=== PATIENT | female | born 1985 | race Caucasian/White ===

== ENCOUNTER 2016-05-09 08:56 | Observation (INO) | payer MEDICAID, OTHER ==
[2016-05-09] VITALS (11 sets, daily range): BP systolic 98–131; BP diastolic 56–74; PULSE 71–115; RESP 16–18; TEMP 97.9–98.5; O2SAT 97–100
[~2016-05-09] VITALS: Ht 177.8 cm; Wt 101.2 kg
[~2016-05-09 08:56] MED LIST: MEDR10 PO
[2016-05-09] MEDS ORDERED: birth control PO (11:58)
[2016-05-09 12:37] LABS: MEAN CORPUSCULAR HGB CONC 28.3 % (32.0-36.0)
--- NOTE | 2016-05-09 12:44 | PD ---
HPI Chief Complaint: General Weakness Time Seen by Provider: 12:37 Travel History International Travel<30 days: No Contact w/Intl Traveler<30days: No Traveled to known affect area: No History of Present Illness HPI Patient is a 31-year-old female with a history of hypothyroidism and anemia secondary to heavy menses not currently on levothyroxine or iron presenting with fatigue for 1 month. She states symptoms got progressively worse. She has occasional frontal tension type headache. She is occasionally lightheaded, denies syncope. Standing from sitting to seem to make it worse. She's had dry skin, hair falling out, muscle aches and chills but denies fever. She denies ENT/URI symptoms. She denies abdominal pain, dysuria, diarrhea, hematochezia and melena. She is on oral contraception for regulation of her menses and this does seem to be working. She denies chest pain, shortness of breath, cough, orthopnea, MOSES and pedal edema. She denies secondary to this and tubal ligation. She denies tobacco and illicit drug use, endorses rare alcohol use. PFSH Past Medical History Diminished Hearing: No Thyroid Disease: Yes (HYPOTHYROID RESOLVED) Tetanus Vaccination: < 5 Years ?: Not LMP: 05/06/16 : 5 Para: 4 Miscarriage: 1 Tubal Ligation: Yes Social History Alcohol Use: Yes (occ) Tobacco Use: No Substance Use: No Allergies-Medications (Allergen,Severity, Reaction): Coded Allergies: No Known Allergies (Unverified , 05/09/16) Reported Meds & Prescriptions Reported Meds & Active Scripts Active Reported [ control] 1 Tab PO DAILY Review of Systems Except as stated in HPI: all other systems reviewed are Neg Physical Exam Narrative GENERAL: Well-developed and well-nourished adult female in no acute distress. SKIN: Skin is dry. No changes to hair or nails. Good turgor without tenting. HEAD: Normocephalic and atraumatic. EYES: Pale conjunctiva. PERRL bilaterally, 5mm. EOMI bilaterally. No injection or icterus present. No proptosis. Lids without edema or erythema. Subcentimeter nontender cystic lesion superior to the right upper eyelid, chronic per patient. ENT: Bilateral ear canals are non-edematous/non-erythematous without otorrhea. Bilateral TMs have intact landmarks and without distortion, perforation, air- fluid level or erythema. Nasal mucosa pink and moist without discharge, septum intact and midline. Buccal mucosa pink and moist. Oropharynx free of erythema, tonsillar hypertrophy, masses, swelling, asymmetry and exudates. Uvula midline and airway patent. NECK: Supple, no meningeal signs. Thyroid not palpable. No masses or induration. Trachea midline, no JVD. No cervical or facial lymphadenopathy. CARDIOVASCULAR: Regular rate(88) and rhythm without murmurs, rubs, clicks or gallops. Radial and posterior tibial pulses 2+ bilaterally. No pedal edema. RESPIRATORY: Clear to auscultation bilaterally with symmetrical rise and fall, no distress or use of accessory muscles. GASTROINTESTINAL: Non-tender, non-distended. Normal bowel sounds all 4 quadrants. No masses or organomegaly present. MUSCULOSKELETAL: No gait disturbances. Patient freely moving all four extremities spontaneously. Extremities without clubbing, cyanosis, or edema. No obvious deformities. NEUROLOGIC: CN II-XII grossly intact. Awake and alert. Motor grossly within normal limits. Normal speech. PSYCHIATRIC: Appropriate mood and affect; insight and judgment normal. Data Data Last Documented VS Vital Signs Date Time Temp Pulse Resp B/P Pulse Ox O2 Delivery O2 Flow Rate FiO2 05/09/16 14:56 98.5 80 18 121/65 100 Room Air Orders Electrocardiogram (05/09/16 12:32) Complete Blood Count With Diff (05/09/16 12:32) Comprehensive Metabolic Panel (05/09/16 12:32) Troponin I (05/09/16 12:32) Urinalysis - C+S If Indicated (05/09/16 12:32) Chest, Single Ap (05/09/16 12:32) Orthostatic Vital Signs (05/09/16 12:32) Thyroid Stimulating Hormone (05/09/16 12:32) Lipase (05/09/16 12:32) Blood Glucose (05/09/16 12:32) Ibuprofen (Motrin) (05/09/16 12:45) Creatine Kinase (Cpk) (05/09/16 12:37) Prothrombin Time / Inr (Pt) (05/09/16 12:44) Act Partial Throm Time (Ptt) (05/09/16 12:44) Type And Screen (05/09/16 12:44) Urine Culture (05/09/16 13:09) Vitamin B12 (05/09/16 13:51) Folate, Serum (05/09/16 13:51) Rbc Folate (05/09/16 13:51) Ferritin (05/09/16 13:51) Iron/Tibc Profile (05/09/16 13:51) Retic Count (05/09/16 13:51) Red Blood Cells (Rbc) (05/09/16 14:03) Blood Product Administration .UPON TRANSFUSION (05/09/16 14:03) Ceftriaxone Inj (Rocephin Inj) (05/09/16 14:15) Admit Order (Ed Use Only) (05/09/16 15:13) Place In Observation (05/09/16 ) Vital Signs (Adult) Q4H (05/09/16 15:14) Activity Oob With Assistance (05/09/16 15:14) Fiber Optic Technician / Telemetry .CONTINUOUS (05/09/16 15:14) Diet Regular Basic (05/09/16 Dinner) Sodium Chloride 0.9% Flush (Ns Flush) (05/09/16 15:15) Sodium Chloride 0.9% Flush (Ns Flush) (05/09/16 21:00) Acetaminophen (Tylenol) (05/09/16 15:15) Ondansetron Inj (Zofran Inj) (05/09/16 15:15) Complete Blood Count With Diff (05/10/16 06:00) Resp Oxygen Chuy C Titrat 1-4 L (05/09/16 ) Scd Bilateral/Knee High FATUMA.BID (05/09/16 15:14) Herb Bilateral/Knee High FATUMA.QSHIFT (05/09/16 15:14) Naloxone Inj (Narcan Inj) (05/09/16 15:15) Labs Laboratory Tests Test 05/09/16 05/09/16 13:09 14:03 White Blood Count 9.0 TH/MM3 Red Blood Count 3.70 MIL/MM3 Hemoglobin 6.1 GM/DL Hematocrit 21.5 % Mean Corpuscular Volume 58.1 FL Mean Corpuscular Hemoglobin 16.5 PG Mean Corpuscular Hemoglobin 28.3 % Concent Red Cell Distribution Width 21.4 % Platelet Count 330 TH/MM3 Mean Platelet Volume 8.8 FL Neutrophils (%) (Auto) 78.9 % Lymphocytes (%) (Auto) 14.2 % Monocytes (%) (Auto) 6.0 % Eosinophils (%) (Auto) 0.0 % Basophils (%) (Auto) 0.9 % Neutrophils # (Auto) 7.1 TH/MM3 Lymphocytes # (Auto) 1.3 TH/MM3 Monocytes # (Auto) 0.5 TH/MM3 Eosinophils # (Auto) 0.0 TH/MM3 Basophils # (Auto) 0.1 TH/MM3 CBC Comment AUTO DIFF Differential Comment AUTO DIFF CONFIRMED Reticulocyte Count 3.1 % Absolute Reticulocyte Count 110.9 MIL/L Prothrombin Time 10.4 SEC Prothromb Time International 0.9 RATIO Ratio Activated Partial 22.7 SEC Thromboplast Time Urine Color YELLOW Urine Turbidity HAZY Urine pH 6.0 Urine Specific [place] 1.021 Urine Protein 30 mg/dL Urine Glucose (UA) NEG mg/dL Urine Ketones NEG mg/dL Urine Occult Blood TRACE Urine Nitrite POS Urine Bilirubin NEG Urine Urobilinogen LESS THAN 2.0 MG/DL Urine Leukocyte Esterase MOD Urine RBC 2 /hpf Urine WBC 58 /hpf Urine WBC Clumps RARE Urine Squamous Epithelial <1 /hpf Cells Urine Bacteria MOD /hpf Urine Mucus MANY /lpf Microscopic Urinalysis Comment CULTURE INDICATED Sodium Level 135 MEQ/L Potassium Level 4.0 MEQ/L Chloride Level 103 MEQ/L Carbon Dioxide Level 24.3 MEQ/L Anion Gap 8 MEQ/L Blood Urea Nitrogen 13 MG/DL Creatinine 0.87 MG/DL Estimat Glomerular Filtration 76 ML/MIN Rate Random Glucose 102 MG/DL Calcium Level 8.5 MG/DL Total Bilirubin 0.5 MG/DL Aspartate Amino Transf 10 U/L (AST/SGOT) Alanine Aminotransferase 22 U/L (ALT/SGPT) Alkaline Phosphatase 74 U/L Total Creatine Kinase 50 U/L Troponin I LESS THAN 0.02 NG/ML Total Protein 7.7 GM/DL Albumin 2.9 GM/DL Lipase 150 U/L Thyroid Stimulating Hormone 2.410 uIU/ML 3rd Gen Blood Type A POSITIVE Antibody Screen NEGATIVE Crossmatch Leukocyte-Reduced Red Blood Cells Blood Bank Comment MDM Medical Decision Making Medical Screen Exam Complete: Yes Emergency Medical Condition: Yes Differential Diagnosis Anemia versus hypothyroidism versus hypoglycemia versus dehydration versus rhabdomyolysis versus viral syndrome versus ACS unlikely Narrative Course Patient is a 31-year-old female history of hypothyroidism and anemia secondary to heavy loss during menses currently not on levothyroxine or iron presenting with fatigue for 1 month. She has other symptoms suggestive of anemia such as occasional dizziness without syncope. She has some mild frontal headaches, minor one is present now. She has no "red flag "symptoms and this appears to be a tension type headache. Neuro exam is normal. Ordered CBC, CMP, lipase, CPK, urinalysis, troponin, orthostatic vital signs, EKG and chest x-ray as well as coags and type and cross as she does have pale conjunctiva. Heart rate in triage was 115 however on my exam is 88 and regular. Work up was initiated in triage. Patient will be transferred to a medical bed as one becomes available for further care and disposition by the next provider. Received call from hematology critical lab values. H&H 6.1/21.5. Platelets 330 , no leukocytosis. INR 0.9. I discussed with Dr. Del Rio as the patient is being moved to her pod and she ordered anemia labs and requested I ordered 1 unit of pRBCs. Urinalysis suggests UTI as well, ordered some ceftriaxone 1 g. Metabolic panel shows sodium 135, creatinine 0.7, CK 50, troponin less than 0.02. EKG and chest x-ray unremarkable. Patient was signed out to Dr. Del Rio for further care and management and admission. Diagnosis Primary Impression: Anemia requiring transfusions Additional Impression: Urinary tract infection Qualified Code: N39.0 - Urinary tract infection without hematuria, site unspecified Admitting Information Admitting Physician Requests: Admit Condition: Stable Akin Holt III May 09, 2016 12:44
[2016-05-09] MEDS ORDERED: IBUPROFEN 800 MG TAB PO ONE (12:45)
--- NOTE | 2016-05-09 13:13 | RADRPT ---
EXAM DATE/TIME: 05/09/2016 12:56 [facility] COMPARISON: No previous studies available for comparison. INDICATIONS : General weakness, palpitations MEDICAL HISTORY : hypothyroid SURGICAL HISTORY : Tubal ligation. ENCOUNTER: Initial ACUITY: 1 day PAIN SCORE: 0/10 LOCATION: Bilateral chest FINDINGS: A single view of the chest demonstrates the lungs to be symmetrically aerated without evidence of mas s, infiltrate or effusion. The cardiomediastinal contours are unremarkable. Osseous structures are intact. CONCLUSION: No acute disease. Roosevelt Cui MD FACR on May 09, 2016 at 13:11 Board Certified Radiologist. This report was verified electronically.
[2016-05-09 13:29] LABS: AUTOMATED NEUTROPHIL # 7.1 TH/MM3 (1.8-7.7); BASOPHIL # 0.1 TH/MM3 (0-0.2); BASOPHIL % 0.9 % (0.0-2.0); LYMPH % 14.2 % (9.0-44.0); LYMPHOCYTE # 1.3 TH/MM3 (1.0-4.8); MEAN CELL VOLUME 58.1 FL (80.0-100.0); MEAN CORPUSCULAR HEMOGLOBIN 16.5 PG (27.0-34.0); NEUT % 78.9 % (16.0-70.0); PLATELET COUNT 330 TH/MM3 (150-450); RED CELL DISTRIBUTION WIDTH 21.4 % (11.6-17.2)
[2016-05-09 13:38] LABS: HEMO FLAGS AUTO DIFF
[2016-05-09 13:39] LABS: APTT (PATIENT) 22.7 SEC (24.3-30.1); INTERNATIONAL NORMALIZED RATIO 0.9 RATIO; PROTHROMBIN TIME - PATIENT 10.4 SEC (9.8-11.6)
[2016-05-09 13:40] LABS: BACTERIA, URINE MOD /hpf; BLOOD, URINE TRACE (NEG); GLUCOSE,URINE NEG (NEG); KETONE, URINE NEG (NEG); MUCUS URINE MANY /lpf (OCC); SQUAMOUS EPITHELIAL CELL URINE <1 /hpf (0-5); URINE COLOR YELLOW (YELLW/STRAW)
[2016-05-09 13:42] LABS: HEMATOCRIT 21.5 % (35.0-46.0)
[2016-05-09 13:43] LABS: ALT (GPT) 22 U/L (10-53); ANION GAP 8 MEQ/L (5-15); AST (GOT) 10 U/L (15-37); BICARBONATE 24.3 MEQ/L (21.0-32.0); BLOOD UREA NITROGEN 13 MG/DL (7-18); CHLORIDE 103 MEQ/L (98-107); GLOMERULAR FILTRATION RATE 76 ML/MIN (>89); SODIUM (NA) 135 MEQ/L (136-145)
[2016-05-09 13:45] LABS: COMMENT (UR) CULTURE INDICATED; CULTURE IF INDICATED CULTURE INDICATED; NITRITE,URINE POS (NEG)
[2016-05-09 13:53] LABS: ALKALINE PHOSPHATASE 74 U/L (45-117); TOTAL BILIRUBIN ADULT 0.5 MG/DL (0.2-1.0)
[2016-05-09 14:10] LABS: SCAN/DIFF AUTO DIFF CONFIRMED
[2016-05-09 14:13] LABS: RETIC % 3.1 % (0.4-3.0)
[2016-05-09 14:14] LABS: REVIEW FLAG FINAL
[2016-05-09] MEDS ORDERED: cefTRIAXone INJ 1,000 MG in SODIUM CHLORIDE 0.9% INJ 100 ML IV ONE (14:15)
--- NOTE | 2016-05-09 14:28 | PD ---
Physical Exam Date Seen by Provider: May 09, 2016 Data Data Last Documented VS Vital Signs Date Time Temp Pulse Resp B/P Pulse Ox O2 Delivery O2 Flow Rate FiO2 05/09/16 14:56 98.5 80 18 121/65 100 Room Air Orders Electrocardiogram (05/09/16 12:32) Complete Blood Count With Diff (05/09/16 12:32) Comprehensive Metabolic Panel (05/09/16 12:32) Troponin I (05/09/16 12:32) Urinalysis - C+S If Indicated (05/09/16 12:32) Chest, Single Ap (05/09/16 12:32) Orthostatic Vital Signs (05/09/16 12:32) Thyroid Stimulating Hormone (05/09/16 12:32) Lipase (05/09/16 12:32) Blood Glucose (05/09/16 12:32) Ibuprofen (Motrin) (05/09/16 12:45) Creatine Kinase (Cpk) (05/09/16 12:37) Prothrombin Time / Inr (Pt) (05/09/16 12:44) Act Partial Throm Time (Ptt) (05/09/16 12:44) Type And Screen (05/09/16 12:44) Urine Culture (05/09/16 13:09) Vitamin B12 (05/09/16 13:51) Folate, Serum (05/09/16 13:51) Rbc Folate (05/09/16 13:51) Ferritin (05/09/16 13:51) Iron/Tibc Profile (05/09/16 13:51) Retic Count (05/09/16 13:51) Red Blood Cells (Rbc) (05/09/16 14:03) Blood Product Administration .UPON TRANSFUSION (05/09/16 14:03) Ceftriaxone Inj (Rocephin Inj) (05/09/16 14:15) Admit Order (Ed Use Only) (05/09/16 15:13) Place In Observation (05/09/16 ) Vital Signs (Adult) Q4H (05/09/16 15:14) Activity Oob With Assistance (05/09/16 15:14) Strategic Marketing Leader / Telemetry .CONTINUOUS (05/09/16 15:14) Diet Regular Basic (05/09/16 Dinner) Sodium Chloride 0.9% Flush (Ns Flush) (05/09/16 15:15) Sodium Chloride 0.9% Flush (Ns Flush) (05/09/16 21:00) Acetaminophen (Tylenol) (05/09/16 15:15) Ondansetron Inj (Zofran Inj) (05/09/16 15:15) Complete Blood Count With Diff (05/10/16 06:00) Resp Oxygen Chuy C Titrat 1-4 L (05/09/16 ) Scd Bilateral/Knee High FATUMA.BID (05/09/16 15:14) Herb Bilateral/Knee High FATUMA.QSHIFT (05/09/16 15:14) Naloxone Inj (Narcan Inj) (05/09/16 15:15) Labs Laboratory Tests Test 05/09/16 05/09/16 13:09 14:03 White Blood Count 9.0 TH/MM3 Red Blood Count 3.70 MIL/MM3 Hemoglobin 6.1 GM/DL Hematocrit 21.5 % Mean Corpuscular Volume 58.1 FL Mean Corpuscular Hemoglobin 16.5 PG Mean Corpuscular Hemoglobin 28.3 % Concent Red Cell Distribution Width 21.4 % Platelet Count 330 TH/MM3 Mean Platelet Volume 8.8 FL Neutrophils (%) (Auto) 78.9 % Lymphocytes (%) (Auto) 14.2 % Monocytes (%) (Auto) 6.0 % Eosinophils (%) (Auto) 0.0 % Basophils (%) (Auto) 0.9 % Neutrophils # (Auto) 7.1 TH/MM3 Lymphocytes # (Auto) 1.3 TH/MM3 Monocytes # (Auto) 0.5 TH/MM3 Eosinophils # (Auto) 0.0 TH/MM3 Basophils # (Auto) 0.1 TH/MM3 CBC Comment AUTO DIFF Differential Comment AUTO DIFF CONFIRMED Reticulocyte Count 3.1 % Absolute Reticulocyte Count 110.9 MIL/L Prothrombin Time 10.4 SEC Prothromb Time International 0.9 RATIO Ratio Activated Partial 22.7 SEC Thromboplast Time Urine Color YELLOW Urine Turbidity HAZY Urine pH 6.0 Urine Specific [place] 1.021 Urine Protein 30 mg/dL Urine Glucose (UA) NEG mg/dL Urine Ketones NEG mg/dL Urine Occult Blood TRACE Urine Nitrite POS Urine Bilirubin NEG Urine Urobilinogen LESS THAN 2.0 MG/DL Urine Leukocyte Esterase MOD Urine RBC 2 /hpf Urine WBC 58 /hpf Urine WBC Clumps RARE Urine Squamous Epithelial <1 /hpf Cells Urine Bacteria MOD /hpf Urine Mucus MANY /lpf Microscopic Urinalysis Comment CULTURE INDICATED Sodium Level 135 MEQ/L Potassium Level 4.0 MEQ/L Chloride Level 103 MEQ/L Carbon Dioxide Level 24.3 MEQ/L Anion Gap 8 MEQ/L Blood Urea Nitrogen 13 MG/DL Creatinine 0.87 MG/DL Estimat Glomerular Filtration 76 ML/MIN Rate Random Glucose 102 MG/DL Calcium Level 8.5 MG/DL Total Bilirubin 0.5 MG/DL Aspartate Amino Transf 10 U/L (AST/SGOT) Alanine Aminotransferase 22 U/L (ALT/SGPT) Alkaline Phosphatase 74 U/L Total Creatine Kinase 50 U/L Troponin I LESS THAN 0.02 NG/ML Total Protein 7.7 GM/DL Albumin 2.9 GM/DL Lipase 150 U/L Thyroid Stimulating Hormone 2.410 uIU/ML 3rd Gen Blood Type A POSITIVE Antibody Screen NEGATIVE Crossmatch Leukocyte-Reduced Red Blood Cells Blood Bank Comment MDM Medical Record Reviewed: Yes Supervised Visit with DAYO: Yes Interpretation(s) EKG at 1333: NSR at 84bpm, qt/qtc: 354/395, no acute st seg changes Vital Signs Date Time Temp Pulse Resp B/P Pulse Ox O2 Delivery O2 Flow Rate FiO2 05/09/16 09:00 98.1 115 16 131/74 98 CBC & BMP Diagram 05/09/16 13:09 Differential Diagnosis Symptomatic anemia Narrative Course I, Dr. Del Rio, have reviewed the advance practice practitioner's documentation and am in agreement, met with the patient face to face, made the diagnosis, and the medical decision making was done by me. *My assessment and Findings: Symptomatic anemia requiring blood transfusion at this time with a hemoglobin of 6.1 Hemoglobin on June 21, 2015 was 12.1 Hemoglobin on December 16, 2015 was 8.6 Patient is a 31-year-old female with history of anemia patient attributes to heavy menses, presents to emergency room with complaints of increased fatigue for the past month. Patient reports that she started her menses 3 days ago, reports that her cycle has not been as heavy as she currently is on control pills to help with this. Patient reports that symptoms have been progressing and having getting worse. Reports that she used to be on iron in the past for anemia, reports that she has stopped this as well as her levothyroxine and has not been compliant with her medications. Reports that she occasionally feels lightheaded and dizzy with her symptoms. Patient reports that she has never had a blood transfusion for anemia in the past. Hemoglobin is 6.1. Anemia labs ordered for patient prior to blood confusion. Will admit patient and transfuse with 1 unit of blood. case reviewed with dr enriquez who accepts pt to service Diagnosis Primary Impression: Anemia requiring transfusions Additional Impression: Urinary tract infection Qualified Code: N39.0 - Urinary tract infection without hematuria, site unspecified Admitting Information Admitting Physician Requests: Observation Condition: Stable Brook Del Rio DO May 09, 2016 14:28
[2016-05-09] MEDS ORDERED: ONDANSETRON HCL 4 MG/2 ML VIAL IVP PRN (15:15)
[2016-05-09] MEDS ORDERED: ACETAMINOPHEN 325 MG TAB PO PRN (15:15)
[2016-05-09] MEDS ORDERED: SODIUM CHLORIDE 0.9% FLUSH 5 ML FLUSH FLUSH PRN (15:15)
[2016-05-09] MEDS ORDERED: NALOXONE HCL 0.4 MG/ML AMP IV PRN (15:15)
[2016-05-09 17:04] LABS: FERRITIN 5 NG/ML (8-252); TRANSFERRIN IRON PROFILE 367 MG/DL (200-360)
[2016-05-09] MEDS ORDERED: SODIUM CHLOR 0.9% 250 ML INJ 250 ML IV ONE (17:30)
--- NOTE | 2016-05-09 17:34 | HHI.HP ---
HPI Service [facility] Primary Care Physician No Primary Care Physician Admission Diagnosis Symptomatic Anemia Diagnoses: Chief Complaint: Fatigue Travel History International Travel<30 Days: No Contact w/Intl Traveler <30 Da: No Traveled to Known Affected Are: No History of Present Illness 31-year-old female with a past medical history of anemia, menorrhagia, iron deficiency, hypothyroidism who presented with fatigue. The patient states that approximately 2 weeks ago she was having symptoms of headache, chills, muscle aches, and dizziness. She states the symptoms lasted for a few days and seemed to improve. However, for the past 3 days she's been having similar symptoms again. She thought this was secondary to hypothyroidism, because she was on medications for that in the past. She is currently on her period. She was actually having of heavy periods aide. Months ago, and was started on control, which have regulated and decrease the heaviness of her periods. She is following with an RN [facility] clinic in [facility]. She was told that she needed to be on iron, but she could not tolerate the iron because it caused her vomiting. She is having some nausea and vomiting earlier today, denies any hematemesis. She denies any blurred vision, cough, shortness breath, chest pain , diarrhea, constipation. Review of Systems Except as stated in HPI: all other systems reviewed are Neg Past Family Social History Past Medical History Menorrhagia Iron deficiency Anemia History of hypothyroidism Past Surgical History Left ankle surgery Tubal ligation Reported Medications [ control] 1 Tab PO DAILY, patient is unsure which specific control she is on Allergies: Coded Allergies: No Known Allergies (Unverified , 05/09/16) Active Ordered Medications Current Medications Medications (Trade) Dose Ordered Sig/Earlene Route Start Time Stop Time Status Last Admin (NS Flush) 2 ml UNSCH PRN FLUSH 05/09/16 15:15 (NS Flush) 2 ml BID FLUSH 05/09/16 21:00 (Tylenol) 650 mg Q4H PRN PO 05/09/16 15:15 (Zofran Inj) 4 mg Q6H PRN IVP 05/09/16 15:15 (Narcan Inj) 0.4 mg UNSCH PRN IV 05/09/16 15:15 Family History Father has hypertension and diabetes Social History Drinks one or 2 drinks, every one or 2 weeks Denies any tobacco abuse or drug use Physical Exam Vital Signs Vital Signs Date Time Temp Pulse Resp B/P Pulse Ox O2 Delivery O2 Flow Rate FiO2 05/09/16 16:00 76 18 98/61 97 Room Air 05/09/16 15:48 77 18 100/58 97 Room Air 05/09/16 15:19 98.2 79 18 102/67 100 Room Air 05/09/16 14:56 98.5 80 18 121/65 100 Room Air 05/09/16 14:44 78 18 113/61 102 18 121/65 05/09/16 09:00 98.1 115 16 131/74 98 Physical Exam GENERAL: Well-developed well-nourished. In no acute distress. SKIN: Warm and dry. No lesions noted. HEENT: Normocephalic. Pupils equal and round. Mucous membranes pink and moist. CARDIOVASCULAR: Regular rate and rhythm. No murmur appreciated. RESPIRATORY: No accessory muscle use. Clear to auscultation. Breath sounds equal bilaterally. GASTROINTESTINAL: Abdomen soft, non-tender, nondistended. Bowel sounds x4. MUSCULOSKELETAL: No obvious deformities. No clubbing or cyanosis. No edema. NEUROLOGICAL: Awake and alert. No focal neurological deficits. Moves upper and lower extremities spontaneously. Normal speech. PSYCHIATRIC: Appropriate mood and affect; insight and judgment normal. Laboratory Laboratory Tests Test 05/09/16 05/09/16 13:09 14:03 White Blood Count 9.0 Red Blood Count 3.70 Hemoglobin 6.1 Hematocrit 21.5 Mean Corpuscular Volume 58.1 Mean Corpuscular Hemoglobin 16.5 Mean Corpuscular Hemoglobin 28.3 Concent Red Cell Distribution Width 21.4 Platelet Count 330 Mean Platelet Volume 8.8 Neutrophils (%) (Auto) 78.9 Lymphocytes (%) (Auto) 14.2 Monocytes (%) (Auto) 6.0 Eosinophils (%) (Auto) 0.0 Basophils (%) (Auto) 0.9 Neutrophils # (Auto) 7.1 Lymphocytes # (Auto) 1.3 Monocytes # (Auto) 0.5 Eosinophils # (Auto) 0.0 Basophils # (Auto) 0.1 CBC Comment AUTO DIFF Differential Comment AUTO DIFF CONFIRMED Reticulocyte Count 3.1 Absolute Reticulocyte Count 110.9 Prothrombin Time 10.4 Prothromb Time International 0.9 Ratio Activated Partial 22.7 Thromboplast Time Urine Color YELLOW Urine Turbidity HAZY Urine pH 6.0 Urine Specific [place] 1.021 Urine Protein 30 Urine Glucose (UA) NEG Urine Ketones NEG Urine Occult Blood TRACE Urine Nitrite POS Urine Bilirubin NEG Urine Urobilinogen LESS THAN 2.0 Urine Leukocyte Esterase MOD Urine RBC 2 Urine WBC 58 Urine WBC Clumps RARE Urine Squamous Epithelial <1 Cells Urine Bacteria MOD Urine Mucus MANY Microscopic Urinalysis Comment CULTURE INDICATED Sodium Level 135 Potassium Level 4.0 Chloride Level 103 Carbon Dioxide Level 24.3 Anion Gap 8 Blood Urea Nitrogen 13 Creatinine 0.87 Estimat Glomerular Filtration 76 Rate Random Glucose 102 Calcium Level 8.5 Iron Level 18 Total Iron Binding Capacity 514 Percent Iron Saturation 3.5 Ferritin 5 Total Bilirubin 0.5 Aspartate Amino Transf 10 (AST/SGOT) Alanine Aminotransferase 22 (ALT/SGPT) Alkaline Phosphatase 74 Total Creatine Kinase 50 Troponin I LESS THAN 0.02 Total Protein 7.7 Albumin 2.9 Lipase 150 Vitamin B12 Level 287 Folate 12.9 Thyroid Stimulating Hormone 2.410 3rd Gen Blood Type A POSITIVE Antibody Screen NEGATIVE Crossmatch Leukocyte-Reduced Red Blood Cells Blood Bank Comment Date/Time Procedure Status Source Growth 05/09/16 13:09 Urine Culture Received Urine Clean Catch Pending Result Diagram: 05/09/16 1309 05/09/16 1309 Imaging Last Impressions Chest X-Ray 05/09/16 1232 Signed Impressions: Service Date/Time: Monday, May 09, 2016 12:56 - CONCLUSION: No acute disease. Roosevelt Cui MD FACR Assessment and Plan Assessment and Plan 31-year-old female with a past medical history of anemia, menorrhagia, iron deficiency, hypothyroidism who presented with fatigue Acute anemia: Microcytic. Secondary to severe iron deficiency and patient on her period. Hemoglobin 6.1, previously 8.6 on 12/16/15. Iron panel reviewed which shows severe iron deficiency. Transfuse 2 units PRBCs. Supportive care. We'll plan for ferrous gluconate prescription at discharge. Abnormal UA: UA with evidence of UTI vs contamination from period. Empiric IV Rocephin. Follow up urine culture. History of menorrhagia: Improved since starting on control pills a few months ago. Continue HAND FINISHER follow-up. History of hypothyroidism: TSH within normal limits. No indication for treatment at this time. DVT prophylaxis: SCDs Written by Juan Daniel Merritt, acting as scribe for Dr. Real on 05/09/16 at 17:34. Discussed Condition With Patient, RN Attending Statement The documentation accurately reflects the work performed [id number] by me on at 17:34. Juan Daniel Merritt May 09, 2016 17:34 Nick Real MD May 09, 2016 18:22
[2016-05-09] MEDS: SODIUM CHLORIDE 0.9% FLUSH 5 ML FLUSH FLUSH SCH (21:34)
[2016-05-10] VITALS (9 sets, daily range): BP systolic 101–128; BP diastolic 55–71; PULSE 62–84; RESP 16–18; TEMP 97.6–98.5; O2SAT 98–100
[2016-05-10 08:16] LABS: AUTOMATED NEUTROPHIL # 6.2 TH/MM3 (1.8-7.7); BASOPHIL # 0.1 TH/MM3 (0-0.2); BASOPHIL % 0.7 % (0.0-2.0); EOSINOPHIL % 0.4 % (0.0-4.0); LYMPH % 23.4 % (9.0-44.0); LYMPHOCYTE # 2.2 TH/MM3 (1.0-4.8); MEAN CELL VOLUME 64.4 FL (80.0-100.0); MEAN CORPUSCULAR HEMOGLOBIN 19.9 PG (27.0-34.0); MEAN CORPUSCULAR HGB CONC 30.8 % (32.0-36.0); MONO % 8.7 % (0.0-8.0); NEUT % 66.8 % (16.0-70.0); PLATELET COUNT 256 TH/MM3 (150-450); RED BLOOD COUNT 4.03 MIL/MM3 (4.00-5.30); RED CELL DISTRIBUTION WIDTH 27.4 % (11.6-17.2); WHITE BLOOD COUNT 9.3 TH/MM3 (4.0-11.0)
[2016-05-10 08:22] LABS: HEMO FLAGS AUTO DIFF
[2016-05-10 09:06] LABS: SCAN/DIFF AUTO DIFF CONFIRMED
[2016-05-10] MEDS: SODIUM CHLORIDE 0.9% FLUSH 5 ML FLUSH FLUSH SCH ×2 (09:42→21:06)
--- NOTE | 2016-05-10 13:14 | HHI.PR ---
Subjective Remarks Follow-up anemia, UTI. Patient still having some lightheadedness with ambulation. Still having menstrual bleeding, heavier today. Denies dyspnea, nausea, vomiting. Objective Vitals Vital Signs Date Time Temp Pulse Resp B/P Pulse Ox O2 Delivery O2 Flow Rate FiO2 05/10/16 12:00 98.5 70 18 101/68 99 05/10/16 09:46 62 05/10/16 09:46 Room Air 05/10/16 09:25 99 21 05/10/16 08:00 97.9 65 18 108/61 100 05/10/16 04:00 97.7 68 18 104/59 99 05/10/16 02:15 98.1 84 18 108/60 100 05/10/16 00:00 98.0 80 18 102/55 98 05/09/16 23:30 98.0 78 18 107/58 98 05/09/16 23:10 98.1 78 18 100/59 98 05/09/16 20:00 Room Air 05/09/16 20:00 84 05/09/16 20:00 98.1 86 18 114/56 99 05/09/16 19:30 98.1 87 18 114/56 100 05/09/16 16:30 97.9 71 18 107/59 97 05/09/16 16:00 76 18 98/61 97 Room Air 05/09/16 15:48 77 18 100/58 97 Room Air 05/09/16 15:19 98.2 79 18 102/67 100 Room Air 05/09/16 14:56 98.5 80 18 121/65 100 Room Air 05/09/16 14:44 78 18 113/61 102 18 121/65 I/O 05/09/16 05/09/16 05/09/16 05/10/16 05/10/16 05/10/16 07:00 15:00 23:00 07:00 15:00 23:00 Intake Total 480 ml 240 ml Balance 480 ml 240 ml Intake Oral 480 ml 240 ml # Voids 3 2 Result Diagram: 05/10/16 0720 05/09/16 1309 Imaging Last Impressions Chest X-Ray 05/09/16 1232 Signed Impressions: Service Date/Time: Monday, May 09, 2016 12:56 - CONCLUSION: No acute disease. Roosevelt Cui MD FACR Objective Remarks Examined in presence of the nurse. General: No acute distress. Heart: Regular rate and rhythm. No murmur. Lungs: Clear to auscultation bilaterally. No wheezes, rales, or rhonchi. Breathing is nonlabored. Abdomen: Soft, nontender, nondistended. Extremities: No lower extremity edema. Psych: Alert and oriented. Procedures None Urinary Catheter: No Vascular Central Line Catheter: No A/P Problem List: (1) Anemia requiring transfusions ICD Code: D64.9 Status: Acute (2) Urinary tract infection ICD Code: N39.0 Status: Acute (3) Iron deficiency anemia ICD Code: D50.9 Status: Acute Assessment and Plan 1. Symptomatic anemia: Secondary to severe iron deficiency, menstrual bleeding. Patient's periods are much less heavy since starting on control pills. Supplement iron. Hemoglobin improved following transfusion. Monitor H&H. 2. UTI: Urine culture growing gram-negative rods. Continue antibiotics. Awaiting further ID and sensitivities. 3. History of menorrhagia: Improved with control pills. Follow-up as outpatient with gynecology. 4. DVT prophylaxis: SCDs. Avoid chemical prophylaxis secondary to anemia. Discharge Planning Possible discharge home tomorrow if H/H remain stable. Problem Qualifiers (1) Urinary tract infection: Qualified Code: N39.0 - Urinary tract infection without hematuria, site unspecified Nick Real MD May 10, 2016 13:14
[2016-05-10] MEDS ORDERED: SPRI28TA PO (15:21)
--- NOTE | 2016-05-10 16:23 | EKG ---
Date Performed: 05/09/2016 Time Performed: 13:33:51 PTAGE: 31 years EKG: Sinus rhythm NORMAL ECG PREVIOUS TRACING : 05/09/2016 13.03 DOCTOR: Ok Hernandez Interpretating Date/Time 05/10/2016 16:22:02
[2016-05-10] MEDS: FERROUS SULFATE 325 MG (65 MG ELEMENTAL IRON) TAB PO SCH (16:43)
[2016-05-10 17:06] LABS: HEMATOCRIT 26.9 % (35.0-46.0)
[2016-05-10 17:07] LABS: REVIEW FLAG AUTO DIFF
[2016-05-10] MEDS ORDERED: cefTRIAXone INJ 1,000 MG in SODIUM CHLORIDE 0.9% INJ 100 ML IV SCH (18:00)
[2016-05-11] VITALS: BP 103/63; PULSE 75; RESP 18; TEMP 98.4; O2SAT 100
[2016-05-11 04:00] VITALS: BP 112/57; PULSE 63; RESP 16; TEMP 98.1; O2SAT 100
[2016-05-11] MEDS: SODIUM CHLORIDE 0.9% FLUSH 5 ML FLUSH FLUSH SCH (07:56)
[2016-05-11 08:00] VITALS: BP 106/65; PULSE 73; RESP 18; TEMP 98.1; O2SAT 97
[2016-05-11] MEDS ORDERED: NORGESTIMATE PO SCH (09:00)
[2016-05-11] MEDS ORDERED: ETHINYL ESTRADIOL PO SCH (09:00)
[2016-05-11 09:11] VITALS: PULSE 61
[2016-05-11 10:06] LABS: HEMATOCRIT 27.2 % (35.0-46.0)
[2016-05-11 10:09] LABS: REVIEW FLAG FINAL
[2016-05-11] MEDS ORDERED: FERR325T72 PO (10:23)
--- NOTE | 2016-05-11 10:26 | HHI.DCPOC ---
Discharge Care Plan Diagnosis: (1) Anemia requiring transfusions (2) Iron deficiency anemia (3) Urinary tract infection Goals to Promote Your Health * To prevent worsening of your condition and complications * To maintain your health at the optimal level Directions to Meet Your Goals Take your medications as prescribed Follow your dietary instruction Follow activity as directed Keep your appointments as scheduled Take your immunizations and boosters as scheduled If your symptoms worsen call your PCP, if no PCP go to Urgent Care Center or Emergency Room Smoking is Dangerous to Your Health. Avoid second hand smoke Call the 24-hour hour crisis hotline for domestic abuse at Nick Real MD May 11, 2016 10:26
[2016-05-11] MEDS ORDERED: CEPH500T PO (10:32)
[2016-05-11] MEDS: FERROUS SULFATE 325 MG (65 MG ELEMENTAL IRON) TAB PO SCH (11:53)
--- NOTE | 2016-05-11 11:57 | HHI.PR ---
Subjective Remarks Follow-up anemia. Hemoglobin has been stable. Patient reports no lightheadedness this morning. She has been ambulating from the bed to the bathroom without symptoms. She wants to go home. Objective Vitals Vital Signs Date Time Temp Pulse Resp B/P Pulse Ox O2 Delivery O2 Flow Rate FiO2 05/11/16 09:11 61 05/11/16 08:05 Room Air 05/11/16 08:00 98.1 73 18 106/65 97 05/11/16 04:00 98.1 63 16 112/57 100 05/11/16 00:00 98.4 75 18 103/63 100 05/10/16 20:00 98.4 81 16 103/61 100 05/10/16 20:00 Room Air 05/10/16 20:00 69 05/10/16 20:00 69 05/10/16 16:00 97.6 70 18 128/71 100 05/10/16 12:00 98.5 70 18 101/68 99 I/O 05/10/16 05/10/16 05/10/16 05/11/16 05/11/16 05/11/16 07:00 15:00 23:00 07:00 15:00 23:00 Intake Total 240 ml 720 ml 360 ml 240 ml Balance 240 ml 720 ml 360 ml 240 ml Intake Oral 240 ml 720 ml 360 ml 240 ml # Voids 2 3 3 2 # Bowel Movements 0 1 0 Result Diagram: 05/11/16 0916 05/09/16 1309 Imaging Last Impressions Chest X-Ray 05/09/16 1232 Signed Impressions: Service Date/Time: Monday, May 09, 2016 12:56 - CONCLUSION: No acute disease. Roosevelt Cui MD FACR Objective Remarks Examined in presence of the nurse. General: No acute distress. Heart: Regular rate and rhythm. No murmur. Lungs: Clear to auscultation bilaterally. No wheezes, rales, or rhonchi. Breathing is nonlabored. Abdomen: Soft, nontender, nondistended. Extremities: No lower extremity edema. Psych: Alert and oriented. Procedures None Urinary Catheter: No Vascular Central Line Catheter: No A/P Problem List: (1) Anemia requiring transfusions ICD Code: D64.9 Status: Acute (2) Urinary tract infection ICD Code: N39.0 Status: Acute (3) Iron deficiency anemia ICD Code: D50.9 Status: Acute Assessment and Plan 1. Symptomatic anemia: Secondary to severe iron deficiency, menstrual bleeding. Patient's periods are much less heavy since starting on control pills. Supplement iron. Hemoglobin improved following transfusion and has remained stable overnight. 2. UTI: Urine culture growing Escherichia coli. Continue antibiotics. 3. History of menorrhagia: Improved with control pills. Follow-up as outpatient with gynecology. 4. DVT prophylaxis: SCDs. Avoid chemical prophylaxis secondary to anemia. Discharge Planning Discharge home in stable condition. Patient advised to follow-up with her PCP. Return to hospital if symptoms worsen. Regular diet as tolerated. Activity as tolerated. Problem Qualifiers (1) Urinary tract infection: Qualified Code: N39.0 - Urinary tract infection without hematuria, site unspecified Nick Real MD May 11, 2016 11:57
[2016-05-11 12:00] VITALS: BP 107/63; PULSE 76; RESP 18; TEMP 98.2; O2SAT 100
== END 2016-05-11 12:39 | disposition home or self-care (01) ==
LOC: NEPA 08:56 → NEDA 15:15 → N04B 16:41
PROVIDERS: ADMIT Family Medicine; ATTEND Family Medicine
DX: D50.9 Iron deficiency anemia, unspecified (principal); N39.0 Urinary tract infection, site not specified; B96.20 Unspecified Escherichia coli [E. coli] as the cause of diseases classified elsewhere; G44.209 Tension-type headache, unspecified, not intractable; E03.9 Hypothyroidism, unspecified; N92.0 Excessive and frequent menstruation with regular cycle; Z91.14 Patient's other noncompliance with medication regimen
CPT/HCPCS: 36430; 71010; 80053; 81001; 82550; 82607; 82728; 82746; 82747; 83540; 83550; 83690; 84443; 84484; 85014; 85018; 85025; 85044; 85610; 85730; 86850; 86900; 86901; 86920; 87077; 87086; 87186; 93005; 96365; 99285; G0378; J0696; J7050; P9016

== ENCOUNTER 2016-06-08 17:50 | Emergency (ER) | payer MEDICAID, OTHER ==
[~2016-06-08] VITALS: Ht 177.8 cm; Wt 100.0 kg
[~2016-06-08 17:50] MED LIST changes: +CEPH500T PO; +FERR325T72 PO; -MEDR10 PO; +SPRI28TA PO
[2016-06-08 17:53] VITALS: BP 128/74; PULSE 84; RESP 16; TEMP 98.2; O2SAT 98
[2016-06-08 18:52] LABS: AUTOMATED NEUTROPHIL # 6.3 TH/MM3 (1.8-7.7); BASOPHIL % 0.4 % (0.0-2.0); EOSINOPHIL # 0.1 TH/MM3 (0-0.4); EOSINOPHIL % 1.5 % (0.0-4.0); HEMATOCRIT 27.1 % (35.0-46.0); LYMPH % 26.2 % (9.0-44.0); LYMPHOCYTE # 2.5 TH/MM3 (1.0-4.8); MEAN CORPUSCULAR HEMOGLOBIN 21.2 PG (27.0-34.0); MEAN CORPUSCULAR HGB CONC 30.7 % (32.0-36.0); MONO % 6.4 % (0.0-8.0); NEUT % 65.5 % (16.0-70.0); PLATELET COUNT 251 TH/MM3 (150-450); RED BLOOD COUNT 3.93 MIL/MM3 (4.00-5.30); RED CELL DISTRIBUTION WIDTH 27.9 % (11.6-17.2); WHITE BLOOD COUNT 9.6 TH/MM3 (4.0-11.0)
[2016-06-08 18:56] LABS: BLOOD, URINE NEG (NEG); COMMENT (UR) CULT NOT INDICATED; CULTURE IF INDICATED CULT NOT INDICATED; GLUCOSE,URINE NEG (NEG); KETONE, URINE NEG (NEG); MUCUS URINE FEW /lpf (OCC); NITRITE,URINE NEG (NEG); SQUAMOUS EPITHELIAL CELL URINE <1 /hpf (0-5); URINE COLOR YELLOW (YELLW/STRAW)
[2016-06-08 18:59] LABS: HEMO FLAGS AUTO DIFF
[2016-06-08 19:05] LABS: BICARBONATE 27.1 MEQ/L (21.0-32.0); POTASSIUM 3.9 MEQ/L (3.5-5.1)
[2016-06-08 19:06] VITALS: BP 113/41; PULSE 71; RESP 15; O2SAT 100
--- NOTE | 2016-06-08 19:28 | PD ---
HPI Chief Complaint: Dizziness Time Seen by Provider: 19:15 Travel History International Travel<30 days: No Contact w/Intl Traveler<30days: No Traveled to known affect area: No History of Present Illness HPI 31-year-old female presents to the emergency department for complaint of fatigue and dizziness. Patient has history of dysfunction uterine bleeding and anemia. Patient was admitted approximately one month ago for anemia associated with vaginal bleeding. Patient required transfusion. Patient states that she has done well until having recurrent of menses getting this week and started noticing increasing fatigue and dizziness. Patient presents because she is concerned that her blood count again has decreased. Patient currently is not being followed by primary care provider but she states she does not have insurance resources. Patient denies other concerns or complaints other than she has a mild headache that develops when she is anemic as well. Patient is taking no medications except her prescription oral contraceptive. Patient denies other chronic medical conditions except for hypothyroidism. Patient denies fever or chills sinus pressure drainage sore throat earache neck pain chest pain shortness of breath cough wheezing nausea vomiting abdominal pain diarrhea constipation also denies any coffee-ground emesis hematemesis melena hematochezia denies any dysuria frequency urgency or hematuria. Patient also has not noticed any rash joint pain or swelling. Overall discomfort is 1/10 in intensity. PFSH Past Medical History Narrative Medical Anemia, headaches, hypothyroidism, tubal ligation, alcohol use, nursing notes reviewed Anemia: Yes Cancer: No Cardiovascular Problems: No Diabetes: No Diminished Hearing: No Endocrine: Yes Genitourinary: No Headaches: Yes Immune Disorder: No Musculoskeletal: No Neurologic: Yes Psychiatric: No Reproductive: No Respiratory: Yes Thyroid Disease: Yes (HYPOTHYROID RESOLVED) Tetanus Vaccination: < 5 Years Influenza Vaccination: No ?: Not : 5 Para: 4 Miscarriage: 1 : 0 Tubal Ligation: Yes Past Surgical History Gynecologic Surgery: Yes (tubes tied) Social History Alcohol Use: Yes (occ) Tobacco Use: No Substance Use: No Allergies-Medications (Allergen,Severity, Reaction): Coded Allergies: No Known Allergies (Unverified , 06/08/16) Reported Meds & Prescriptions Reported Meds & Active Scripts Active Reported Sprintec 28 (Norgestimate-Ethinyl Estradiol) 0.25-35 mg-Mcg Tab 1 Tab PO DAILY Review of Systems Except as stated in HPI: all other systems reviewed are Neg General / Constitutional: No: Fever, Chills HENT: No: Congestion Cardiovascular: No: Chest Pain or Discomfort Respiratory: No: Shortness of Breath Gastrointestinal: No: Nausea, Vomiting, Diarrhea, Abdominal Pain Genitourinary: No: Frequency, Dysuria, Hematuria Musculoskeletal: No: Myalgias, Arthralgias Skin: No Rash Neurologic: Positive: Weakness, Dizziness Psychiatric: No: Anxiety Endocrine: No: Heat Intolerance Hematologic/Lymphatic: No: Easy Bruising Physical Exam Narrative GENERAL: Well developed well-nourished female in no acute distress no respiratory distress SKIN: Warm and dry. HEAD: Normocephalic. EYES: No scleral icterus. No injection or drainage. No conjunctival pallor. NECK: Supple, trachea midline. No JVD or lymphadenopathy. No meningismus no nuchal rigidity. CARDIOVASCULAR: Regular rate and rhythm without murmurs, gallops, or rubs. Bilateral radial and dorsalis pedis pulses 2+ to palpation. RESPIRATORY: Breath sounds equal bilaterally. No accessory muscle use. GASTROINTESTINAL: Abdomen soft, non-tender, nondistended. MUSCULOSKELETAL: No cyanosis, or edema. BACK: Nontender without obvious deformity. No CVA tenderness. Data Data Last Documented VS Vital Signs Date Time Temp Pulse Resp B/P Pulse Ox O2 Delivery O2 Flow Rate FiO2 06/08/16 19:06 71 15 113/41 100 06/08/16 19:04 Room Air 06/08/16 17:53 98.2 Orders Electrocardiogram (06/08/16 ) Urinalysis - C+S If Indicated (06/08/16 17:59) Ed Urine Pregnancytest Poc (06/08/16 17:59) Complete Blood Count With Diff (06/08/16 17:59) Basic Metabolic Panel (Bmp) (06/08/16 17:59) Labs Laboratory Tests Test 06/08/16 06/08/16 18:13 18:30 White Blood Count 9.6 TH/MM3 Red Blood Count 3.93 MIL/MM3 Hemoglobin 8.3 GM/DL Hematocrit 27.1 % Mean Corpuscular Volume 69.0 FL Mean Corpuscular Hemoglobin 21.2 PG Mean Corpuscular Hemoglobin 30.7 % Concent Red Cell Distribution Width 27.9 % Platelet Count 251 TH/MM3 Mean Platelet Volume 9.2 FL Neutrophils (%) (Auto) 65.5 % Lymphocytes (%) (Auto) 26.2 % Monocytes (%) (Auto) 6.4 % Eosinophils (%) (Auto) 1.5 % Basophils (%) (Auto) 0.4 % Neutrophils # (Auto) 6.3 TH/MM3 Lymphocytes # (Auto) 2.5 TH/MM3 Monocytes # (Auto) 0.6 TH/MM3 Eosinophils # (Auto) 0.1 TH/MM3 Basophils # (Auto) 0.0 TH/MM3 CBC Comment AUTO DIFF Sodium Level 141 MEQ/L Potassium Level 3.9 MEQ/L Chloride Level 105 MEQ/L Carbon Dioxide Level 27.1 MEQ/L Anion Gap 9 MEQ/L Blood Urea Nitrogen 15 MG/DL Creatinine 0.85 MG/DL Estimat Glomerular Filtration 79 ML/MIN Rate Random Glucose 84 MG/DL Calcium Level 8.5 MG/DL Urine Color YELLOW Urine Turbidity CLEAR Urine pH 6.0 Urine Specific [place] 1.020 Urine Protein TRACE mg/dL Urine Glucose (UA) NEG mg/dL Urine Ketones NEG mg/dL Urine Occult Blood NEG Urine Nitrite NEG Urine Bilirubin NEG Urine Urobilinogen LESS THAN 2.0 MG/DL Urine Leukocyte Esterase NEG Urine RBC LESS THAN 1 /hpf Urine WBC 1 /hpf Urine Squamous Epithelial <1 /hpf Cells Urine Mucus FEW /lpf Microscopic Urinalysis Comment CULT NOT INDICATED MDM Medical Decision Making Medical Screen Exam Complete: Yes Emergency Medical Condition: Yes Medical Record Reviewed: Yes Interpretation(s) CBC & BMP Diagram 06/08/16 18:13 Vital Signs Date Time Temp Pulse Resp B/P Pulse Ox O2 Delivery O2 Flow Rate FiO2 06/08/16 19:06 71 15 113/41 100 06/08/16 19:04 71 15 100 Room Air 06/08/16 17:53 98.2 84 16 128/74 98 poc hcg: negative ua: wnl Differential Diagnosis Symptomatic anemia, hypothyroidism, dehydration, viral syndrome, UTI, PE Narrative Course Well-developed well-nourished female in no acute distress no respiratory distress evaluated and admitted for transfusion 05/09/16; patient received a transfusion and was identified to have an Escherichia coli urinary tract infection and was given prescription at time of discharge 05/11/16 for outpatient antibiotic therapy. Specimens will be collected and sent for resulting. CBC with automated differential hemoglobin is stable 8.3 platelets are within normal range metabolic panel is within normal limits and urinalysis reveals no evidence of infectious process; point of care hCG negative with previous tubal ligation and no pelvic pain and normal range vital signs unlikely ectopic . TSH in normal range 05/09/16. 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 Diagnosis Primary Impression: Anemia Qualified Code: D50.0 - Iron deficiency anemia due to chronic blood loss Referrals: Insurance Broker call for appointment Patient Instructions: General Instructions Additional Instructions: Increase fluid hydration follow-up with primary care provider/CERTIFIED CONTROL SYSTEMS TECHNICIAN Return to the emergency department for any concerns or change in condition Take acetaminophen/Tylenol as needed for fever 100.4F or greater or for minor pain or for headache as tolerated Med/Other Pt SpecificInfo: No Change to Meds Disposition: 01 DISCHARGE HOME Condition: Stable Fidelia Montejo MD Jun 08, 2016 19:28
[2016-06-08 19:39] LABS: TEARDROP RBCS 1+ (NORMAL)
[2016-06-08 19:40] LABS: PLATELET ESTIMATE SMEAR NORMAL (NORMAL); PLATELET MORPHOLOGY ENLARGED (NORMAL)
[2016-06-08 19:41] LABS: OVALOCYTES 2+ (NORMAL); SCAN/DIFF AUTO DIFF CONFIRMED
--- NOTE | 2016-06-09 14:44 | EKG ---
Date Performed: 06/08/2016 Time Performed: 18:05:07 PTAGE: 31 years EKG: Sinus rhythm WITH SINUS ARRHYTHMIA NORMAL ECG NO PREVIOUS TRACING DOCTOR: Deacon Bradford Interpretating Date/Time 06/09/2016 14:43:43
== END 2016-06-08 20:34 | disposition home or self-care (01) ==
LOC: NEPC 17:50
DX: D50.0 Iron deficiency anemia secondary to blood loss (chronic) (principal); N93.8 Other specified abnormal uterine and vaginal bleeding; N39.0 Urinary tract infection, site not specified; B96.20 Unspecified Escherichia coli [E. coli] as the cause of diseases classified elsewhere
CPT/HCPCS: 80048; 81001; 84703; 85025; 93005

== ENCOUNTER 2016-08-02 17:25 | Emergency (ER) | payer MEDICAID ==
[~2016-08-02] VITALS: Ht 177.8 cm; Wt 97.5 kg
[~2016-08-02 17:25] MED LIST changes: -CEPH500T PO; -FERR325T72 PO
[2016-08-02 17:27] VITALS: BP 141/80; PULSE 81; RESP 14; TEMP 98.2; O2SAT 99
--- NOTE | 2016-08-02 18:16 | PD ---
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 Pt. tried monistat at home but it didn't work, and the itching has worsened and she has developed dysuria and hematuria, and she has developed a bump on her vagina which feels raw. She has had one sexual partner in the past 5 months. PFSH Past Medical History Anemia: Yes Cancer: No Cardiovascular Problems: No Diabetes: No Diminished Hearing: No Endocrine: Yes Genitourinary: No Headaches: Yes Immune Disorder: No Musculoskeletal: No Neurologic: Yes Psychiatric: No Reproductive: No Respiratory: Yes Thyroid Disease: Yes (HYPOTHYROID RESOLVED) ?: Not LMP: 08/02/16 : 5 Para: 4 Miscarriage: 1 : 0 Tubal Ligation: Yes Past Surgical History Gynecologic Surgery: Yes (tubes tied) Other Surgery: Yes Social History Alcohol Use: Yes (occ) Tobacco Use: No Substance Use: No Allergies-Medications (Allergen,Severity, Reaction): Coded Allergies: No Known Allergies (Unverified , 06/08/16) Reported Meds & Prescriptions Reported Meds & Active Scripts Active Reported Sprintec 28 (Norgestimate-Ethinyl Estradiol) 0.25-35 mg-Mcg Tab 1 Tab PO DAILY Review of Systems Except as stated in HPI: all other systems reviewed are Neg Physical Exam Narrative GENERAL:Well appearing, no acute distress SKIN: Focused skin assessment warm and dry. HEAD: Atraumatic. Normocephalic. EYES: Pupils equal and round. No injection or drainage. ENT: Moist mucous membranes NECK: Trachea midline. CARDIOVASCULAR: Regular rate and rhythm. No murmur appreciated. RESPIRATORY: Clear to auscultation. Breath sounds equal bilaterally. GASTROINTESTINAL: Abdomen soft, non-tender, nondistended. CAN WASHER: Multiple vesicular lesions along the labia minora, bloody discharge in the vault MUSCULOSKELETAL: No obvious deformities. NEUROLOGICAL: Awake and alert. No obvious cranial nerve deficits. Moving all extremities. PSYCHIATRIC: Appropriate mood and affect; insight and judgment normal. Data Data Last Documented VS Vital Signs Date Time Temp Pulse Resp B/P Pulse Ox O2 Delivery O2 Flow Rate FiO2 08/02/16 17:27 98.2 81 14 141/80 99 Orders Wet Prep Profile (08/02/16 18:16) Gc And Chlamydia Pcr (08/02/16 18:16) MDM Medical Decision Making Medical Screen Exam Complete: Yes Emergency Medical Condition: Yes Interpretation(s) Afebrile, hypertensive Differential Diagnosis Yeast infection, gonorrhea, Chlamydia, Trichomonas, HSV Narrative Course This is a 31-year-old female who presents to the emergency department with pain in her vagina associated with some burning with urination, a lump in her vagina and vaginal discharge. On exam she has evidence of genital herpes. She was counseled regarding her infection. She will be placed on an antiviral and she was given empiric treatment for cervicitis. Patient was given a referral to woman's care now. Diagnosis Primary Impression: Genital herpes Qualified Code: A60.04 - Herpes simplex vulvovaginitis Patient Instructions: General Instructions Additional Instructions: If you develop fever, chills, severe abdominal pain, persistent vomiting or inability to eat return to the emergency department. Your pelvic exam today did not include a Pap smear. It is important to followup with a adjunct spanish instructor on a yearly basis to be tested for cervical cancer as we do not do that from the emergency department. If there is a concern that you have sexually transmitted disease, your partner should be tested. You should followup with your adjunct spanish instructor or with the health department to get tested for other sexually transmitted diseases like HIV and syphilis, as we do not test for these in the emergency department Med/Other Pt SpecificInfo: Prescription(s) given Scripts Acyclovir 200 Mg Xlp222 Mg PO 5 TIMES A DAY 10 Days Ref 0 Prov:Sasha Mendoza MD 08/02/16 Disposition: 01 DISCHARGE HOME Condition: Stable Sasha Mendoza MD August 02, 2016 18:16
[2016-08-02] MEDS ORDERED: ACYC200C66 PO (19:48)
[2016-08-02] MEDS ORDERED: metroNIDAZOLE 500 MG TAB PO ONE (20:00)
[2016-08-02] MEDS ORDERED: ONDANSETRON ODT 4 MG TAB PO ONE (20:00)
[2016-08-02] MEDS ORDERED: LIDOCAINE HCL 1% 50 ML VIAL IM ONE (20:00)
[2016-08-02] MEDS ORDERED: cefTRIAXone 250 MG VIAL IM ONE (20:00)
[2016-08-02] MEDS ORDERED: AZITHROMYCIN PWD FOR SUSP 1 GM PACKET PO ONE (20:00)
[2016-08-02 22:43] LABS: CHLAMYDIA PCR NOT DETECTED (NOT DETECT); NEISSERIA PCR NOT DETECTED (NOT DETECT)
== END 2016-08-02 20:46 | disposition home or self-care (01) ==
LOC: NEPD 17:25
DX: A60.00 Herpesviral infection of urogenital system, unspecified (principal); N76.0 Acute vaginitis
CPT/HCPCS: 87210; 87491; 87591; 96372; 99283; J0696

== ENCOUNTER 2016-12-12 23:44 | Emergency (ER) | payer MEDICAID ==
[~2016-12-12] VITALS: Ht 177.8 cm; Wt 95.0 kg
[~2016-12-12 23:44] MED LIST changes: +ACYC200C66 PO
[2016-12-12] MEDS ORDERED: SODIUM CHLOR 0.9% 1000 ML INJ 1,000 ML IV ONE (23:53)
[2016-12-12 23:56] VITALS: BP 111/72; PULSE 70; RESP 18; TEMP 98.1; O2SAT 98
[2016-12-12 23:59] VITALS: O2SAT 100
[2016-12-13] MEDS ORDERED: SODIUM CHLORIDE 0.9% FLUSH 10 ML FLUSH IVF PRN
--- NOTE | 2016-12-13 00:25 | RADRPT ---
EXAM DATE/TIME: 12/13/2016 00:08 [facility] COMPARISON: CHEST SINGLE AP, May 09, 2016, 12:56. INDICATIONS : Patient who is a bit lethargic after an overdose of Percocet with no chest pain or shortness of breat h. MEDICAL HISTORY : Hypothyroidism. SURGICAL HISTORY : Tubal ligation. ENCOUNTER: Initial ACUITY: 1 day PAIN SCORE: 0/10 LOCATION: Bilateral chest FINDINGS: A single view of the chest demonstrates the lungs to be symmetrically aerated without evidence of mas s, infiltrate or effusion. The cardiomediastinal contours are unremarkable. Osseous structures are intact. CONCLUSION: The lungs are clear. Sidney Goodwin MD on December 13, 2016 at 0:23 Board Certified Radiologist. This report was verified electronically.
[2016-12-13 00:46] LABS: AUTOMATED NEUTROPHIL # 4.2 TH/MM3 (1.8-7.7); BASOPHIL % 0.5 % (0.0-2.0); EOSINOPHIL # 0.1 TH/MM3 (0-0.4); EOSINOPHIL % 1.3 % (0.0-4.0); HEMATOCRIT 27.9 % (35.0-46.0); HEMO FLAGS DIFF FINAL; LYMPH % 41.3 % (9.0-44.0); LYMPHOCYTE # 3.4 TH/MM3 (1.0-4.8); MEAN CELL VOLUME 66.5 FL (80.0-100.0); MEAN CORPUSCULAR HEMOGLOBIN 20.2 PG (27.0-34.0); MEAN CORPUSCULAR HGB CONC 30.4 % (32.0-36.0); MONO % 6.3 % (0.0-8.0); NEUT % 50.6 % (16.0-70.0); PLATELET COUNT 230 TH/MM3 (150-450); RED CELL DISTRIBUTION WIDTH 19.9 % (11.6-17.2); WHITE BLOOD COUNT 8.3 TH/MM3 (4.0-11.0)
[2016-12-13 00:58] LABS: APTT (PATIENT) 23.4 SEC (24.3-30.1); INTERNATIONAL NORMALIZED RATIO 0.9 RATIO
[2016-12-13 01:03] LABS: ALCOHOL 15 MG/DL (0-5); ANION GAP 8 MEQ/L (5-15); AST (GOT) 9 U/L (15-37); BICARBONATE 25.4 MEQ/L (21.0-32.0); BLOOD UREA NITROGEN 9 MG/DL (7-18); CHLORIDE 110 MEQ/L (98-107); GLOMERULAR FILTRATION RATE 79 ML/MIN (>89); POTASSIUM 3.5 MEQ/L (3.5-5.1); SODIUM (NA) 143 MEQ/L (136-145)
[2016-12-13 01:07] LABS: ACETAMINOPHEN 10.5 MCG/ML (10.0-30.0); ALKALINE PHOSPHATASE 51 U/L (45-117); ALT (GPT) 16 U/L (10-53); BETA HCG QUANT LESS THAN 1 MIU/ML (0-5); TOTAL BILIRUBIN ADULT 0.2 MG/DL (0.2-1.0)
--- NOTE | 2016-12-13 01:42 | PD ---
HPI Chief Complaint: OD/ Ingestion Time Seen by Provider: 01:28 Travel History International Travel<30 days: No Contact w/Intl Traveler<30days: No Traveled to known affect area: No History of Present Illness HPI 31-year-old female presents to the emergency department by EMS transport for not feeling well after drinking alcohol after 8 PM and then sometime thereafter between 8 and 10 PM taking what she believes was 13-15 Percocet 5/325. Patient denies being suicidal. Patient states that she was anxious and drank alcohol to relieve her anxiety after work however was not sufficient so she decided to take the Percocet. Patient states subsequently she did not feel well so she called a friend who encouraged her to come to the emergency room and then she called poison control and she is also encouraged to come to the emergency room. Patient denies any previous overdose events or suicide attempts. Patient states she is not treated for anxiety. PFSH Past Medical History Narrative Medical Anemia, anxiety, hypothyroidism, tubal ligation; no tobacco use, occasional alcohol use; nursing notes reviewed Anemia: Yes Cancer: No Cardiovascular Problems: No Diabetes: No Diminished Hearing: No Endocrine: Yes Genitourinary: No Headaches: Yes Immune Disorder: No Musculoskeletal: No Neurologic: Yes Psychiatric: No Reproductive: No Respiratory: Yes Thyroid Disease: Yes (HYPOTHYROID RESOLVED) Tetanus Vaccination: < 5 Years ?: Not : 5 Para: 4 Miscarriage: 1 : 0 Tubal Ligation: Yes Past Surgical History Gynecologic Surgery: Yes (tubes tied) Other Surgery: Yes Social History Alcohol Use: Yes (occ) Tobacco Use: No Substance Use: No Allergies-Medications (Allergen,Severity, Reaction): Coded Allergies: No Known Allergies (Unverified , 12/13/16) Reported Meds & Prescriptions Reported Meds & Active Scripts Active Acyclovir 200 Mg Cap 200 Mg PO 5 TIMES A DAY 10 Days Reported Sprintec 28 (Norgestimate-Ethinyl Estradiol) 0.25-35 mg-Mcg Tab 1 Tab PO DAILY Review of Systems Except as stated in HPI: all other systems reviewed are Neg General / Constitutional: No: Fever, Chills Eyes: No: Diploplia HENT: No: Congestion Cardiovascular: No: Chest Pain or Discomfort Respiratory: No: Shortness of Breath Gastrointestinal: No: Nausea, Vomiting, Abdominal Pain Genitourinary: No: Dysuria, Flank Pain Musculoskeletal: No: Myalgias, Arthralgias Skin: No Rash Psychiatric: Positive: Anxiety, No: Depression, Suicidal Ideations, Disorder of Thought, Mood Disorder, Substance Abuse, Homicidal Ideation Endocrine: No: Heat Intolerance Hematologic/Lymphatic: No: Easy Bruising Physical Exam Narrative GENERAL: Well-developed well-nourished female in no acute distress no respiratory distress; GCS 15. SKIN: Warm and dry. HEAD: Normocephalic. EYES: No scleral icterus. No injection or drainage. Pupils equal round reactive to light extraocular muscles intact NECK: Supple, trachea midline. No JVD or lymphadenopathy. CARDIOVASCULAR: Regular rate and rhythm without murmurs, gallops, or rubs. RESPIRATORY: Breath sounds equal bilaterally. No accessory muscle use. GASTROINTESTINAL: Abdomen soft, non-tender, nondistended. MUSCULOSKELETAL: No cyanosis, or edema. BACK: Nontender without obvious deformity. No CVA tenderness. Data Data Last Documented VS Vital Signs Date Time Temp Pulse Resp B/P (MAP) Pulse Ox O2 Delivery O2 Flow Rate FiO2 12/13/16 14:20 12/13/16 10:59 98.0 64 17 100 12/13/16 07:58 Room Air Orders Orders Electrocardiogram (12/12/16 23:53) Beta Hcg (Quant/Titer) (12/12/16 23:53) Complete Blood Count With Diff (12/12/16 23:53) Comprehensive Metabolic Panel (12/12/16 23:53) Prothrombin Time / Inr (Pt) (12/12/16 23:53) Act Partial Throm Time (Ptt) (12/12/16 23:53) Urinalysis - C+S If Indicated (12/12/16 23:53) Chest, Single Ap (12/12/16 23:53) Blood Glucose (12/12/16 23:53) Iv Access Insert/Monitor (12/12/16 23:53) Ecg Monitoring (12/12/16 23:53) Oximetry (12/12/16 23:53) Sodium Chloride 0.9% Flush (Ns Flush) (12/13/16 00:00) Sodium Chlor 0.9% 1000 Ml Inj (Ns 1000 M (12/12/16 23:53) Call Poison Control (12/12/16 23:53) Drug Screen, Random Urine (12/12/16 23:53) Alcohol (Ethanol) (12/12/16 23:53) Salicylates (Aspirin) (12/12/16 23:53) Tylenol (Acetaminophen) (12/12/16 23:53) Acetylcysteine Inj (Acetadote Inj) (12/13/16 01:45) Tylenol (Acetaminophen) (12/13/16 01:43) Sodium Chlor 0.9% 1000 Ml Inj (Ns 1000 M (12/13/16 03:15) Ondansetron Inj (Zofran Inj) (12/13/16 04:30) Sodium Chlor 0.9% 1000 Ml Inj (Ns 1000 M (12/13/16 04:30) Psych Screen (12/13/16 06:15) Labs Laboratory Tests Test 12/13/16 00:06 12/13/16 01:45 12/13/16 02:20 White Blood Count 8.3 TH/MM3 Red Blood Count 4.20 MIL/MM3 Hemoglobin 8.5 GM/DL Hematocrit 27.9 % Mean Corpuscular Volume 66.5 FL Mean Corpuscular Hemoglobin 20.2 PG Mean Corpuscular Hemoglobin Concent 30.4 % Red Cell Distribution Width 19.9 % Platelet Count 230 TH/MM3 Mean Platelet Volume 9.7 FL Neutrophils (%) (Auto) 50.6 % Lymphocytes (%) (Auto) 41.3 % Monocytes (%) (Auto) 6.3 % Eosinophils (%) (Auto) 1.3 % Basophils (%) (Auto) 0.5 % Neutrophils # (Auto) 4.2 TH/MM3 Lymphocytes # (Auto) 3.4 TH/MM3 Monocytes # (Auto) 0.5 TH/MM3 Eosinophils # (Auto) 0.1 TH/MM3 Basophils # (Auto) 0.0 TH/MM3 CBC Comment DIFF FINAL Differential Comment Prothrombin Time 10.0 SEC Prothromb Time International Ratio 0.9 RATIO Activated Partial Thromboplast Time 23.4 SEC Blood Urea Nitrogen 9 MG/DL Creatinine 0.85 MG/DL Random Glucose 86 MG/DL Total Protein 7.1 GM/DL Albumin 3.2 GM/DL Calcium Level 8.0 MG/DL Alkaline Phosphatase 51 U/L Aspartate Amino Transf (AST/SGOT) 9 U/L Alanine Aminotransferase (ALT/SGPT) 16 U/L Total Bilirubin 0.2 MG/DL Sodium Level 143 MEQ/L Potassium Level 3.5 MEQ/L Chloride Level 110 MEQ/L Carbon Dioxide Level 25.4 MEQ/L Anion Gap 8 MEQ/L Estimat Glomerular Filtration Rate 79 ML/MIN Human Chorionic Gonadotropin, Quant LESS THAN 1 MIU/ML Salicylates Level LESS THAN 1.7 MG/DL Acetaminophen Level 10.5 MCG/ML 8.6 MCG/ML Ethyl Alcohol Level 15 MG/DL Urine Color YELLOW Urine Turbidity CLEAR Urine pH 6.0 Urine Specific [place] 1.017 Urine Protein NEG mg/dL Urine Glucose (UA) NEG mg/dL Urine Ketones NEG mg/dL Urine Occult Blood LARGE Urine Nitrite NEG Urine Bilirubin NEG Urine Urobilinogen LESS THAN 2.0 MG/DL Urine Leukocyte Esterase NEG Urine RBC 97 /hpf Urine WBC 5 /hpf Urine Squamous Epithelial Cells <1 /hpf Urine Mucus FEW /lpf Microscopic Urinalysis Comment CULT NOT INDICATED Urine Opiates Screen NEG Urine Barbiturates Screen NEG Urine Amphetamines Screen NEG Urine Benzodiazepines Screen NEG Urine Cocaine Screen NEG Urine Cannabinoids Screen NEG MDM Medical Decision Making Medical Screen Exam Complete: Yes Emergency Medical Condition: Yes Medical Record Reviewed: Yes Interpretation(s) EKG sinus rhythm no acute injury pattern change or ectopy noted Last Impressions Chest X-Ray 12/12/16 4306 Signed Impressions: Service Date/Time: Tuesday, December 13, 2016 00:08 - CONCLUSION: The lungs are clear. Sidney Goodwin MD CBC & BMP Diagram 12/13/16 00:06 Total Protein 7.1, Albumin 3.2 L, Calcium Level 8.0 L, Alkaline Phosphatase 51, Aspartate Amino Transf (AST/SGOT) 9 L, Alanine Aminotransferase (ALT/SGPT) 16, Total Bilirubin 0.2 Vital Signs Date Time Temp Pulse Resp B/P (MAP) Pulse Ox O2 Delivery O2 Flow Rate FiO2 12/13/16 05:20 62 16 116/68 (84) 99 Room Air 12/13/16 04:20 60 16 148/92 (110) 99 Room Air 12/13/16 03:30 79 14 120/78 (92) 100 Room Air 12/13/16 02:03 72 14 109/65 (80) 98 Room Air 12/12/16 23:59 69 18 100 12/12/16 23:59 100 Room Air 12/12/16 23:56 98.1 70 18 111/72 (85) 98 Differential Diagnosis Polysubstance ingestion alcohol intoxication acetaminophen overdose opiate overdose mood disorder suicidal ideation accidental ingestion Narrative Course Patient placed on child monitor IV access obtained specimens collected and sent for resulting Acetaminophen level 10.5 patient administered Mucomyst and as she reports that she may have had more than 13-15 Percocet making her 24 hour total greater than 4 g of acetaminophen ingestion additional acetaminophen level obtained Repeat 4 hour acetaminophen level pending Repeat acetaminophen level 8.6 attending down no additional Mucomyst will be administered Additional IV fluids administered patient given zofran 4 mg iv; GCS 15 Patient is medically cleared for psych screening evaluation Diagnosis Primary Impression: Opiate overdose Qualified Codes: T40.601A - Poisoning by unspecified narcotics, accidental ( unintentional), initial encounter Additional Impression: Anxiety Fidelia Montejo MD Dec 13, 2016 01:42
[2016-12-13] MEDS ORDERED: DEXTROSE 5% IV ONE ×2 (01:45)
[2016-12-13] MEDS ORDERED: WATER IV ONE ×2 (01:45)
[2016-12-13] MEDS ORDERED: ACETYLCYSTEINE IV ONE ×2 (01:45)
[2016-12-13 02:03] VITALS: BP 109/65; PULSE 72; RESP 14; O2SAT 98
[2016-12-13 03:09] LABS: BLOOD, URINE LARGE (NEG); COMMENT (UR) CULT NOT INDICATED; CULTURE IF INDICATED CULT NOT INDICATED; GLUCOSE,URINE NEG (NEG); KETONE, URINE NEG (NEG); MUCUS URINE FEW /lpf (OCC); NITRITE,URINE NEG (NEG); SQUAMOUS EPITHELIAL CELL URINE <1 /hpf (0-5); URINE COLOR YELLOW (YELLW/STRAW)
[2016-12-13] MEDS ORDERED: SODIUM CHLOR 0.9% 1000 ML INJ 1,000 ML IV ONE ×2 (03:15→04:30)
[2016-12-13 03:30] VITALS: BP 120/78; PULSE 79; RESP 14; O2SAT 100
[2016-12-13 04:20] VITALS: BP 148/92; PULSE 60; RESP 16; O2SAT 99
[2016-12-13] MEDS ORDERED: ONDANSETRON HCL 4 MG/2 ML VIAL IV PUSH ONE (04:30)
[2016-12-13 05:20] VITALS: BP 116/68; PULSE 62; RESP 16; O2SAT 99
[2016-12-13 07:58] VITALS: BP 117/72; PULSE 64; RESP 15; TEMP 98.2; O2SAT 98
[2016-12-13 10:59] VITALS: BP 139/79; PULSE 64; RESP 17; TEMP 98; O2SAT 100
--- NOTE | 2016-12-13 14:07 | PD ---
Physical Exam Date Seen by Provider: Dec 13, 2016 Time Seen by Provider: 14:04 Narrative For full history and physical examination please see previous provider's notes. Data Data Last Documented VS Vital Signs Date Time Temp Pulse Resp B/P (MAP) Pulse Ox O2 Delivery O2 Flow Rate FiO2 12/13/16 10:59 98.0 64 17 139/79 (99) 100 12/13/16 07:58 Room Air Orders Orders Electrocardiogram (12/12/16 23:53) Beta Hcg (Quant/Titer) (12/12/16 23:53) Complete Blood Count With Diff (12/12/16 23:53) Comprehensive Metabolic Panel (12/12/16 23:53) Prothrombin Time / Inr (Pt) (12/12/16 23:53) Act Partial Throm Time (Ptt) (12/12/16 23:53) Urinalysis - C+S If Indicated (12/12/16 23:53) Chest, Single Ap (12/12/16 23:53) Blood Glucose (12/12/16 23:53) Iv Access Insert/Monitor (12/12/16 23:53) Ecg Monitoring (12/12/16 23:53) Oximetry (12/12/16 23:53) Sodium Chloride 0.9% Flush (Ns Flush) (12/13/16 00:00) Sodium Chlor 0.9% 1000 Ml Inj (Ns 1000 M (12/12/16 23:53) Call Poison Control (12/12/16 23:53) Drug Screen, Random Urine (12/12/16 23:53) Alcohol (Ethanol) (12/12/16 23:53) Salicylates (Aspirin) (12/12/16 23:53) Tylenol (Acetaminophen) (12/12/16 23:53) Acetylcysteine Inj (Acetadote Inj) (12/13/16 01:45) Tylenol (Acetaminophen) (12/13/16 01:43) Sodium Chlor 0.9% 1000 Ml Inj (Ns 1000 M (12/13/16 03:15) Ondansetron Inj (Zofran Inj) (12/13/16 04:30) Sodium Chlor 0.9% 1000 Ml Inj (Ns 1000 M (12/13/16 04:30) Psych Screen (12/13/16 06:15) Labs Laboratory Tests Test 12/13/16 00:06 12/13/16 01:45 12/13/16 02:20 White Blood Count 8.3 TH/MM3 Red Blood Count 4.20 MIL/MM3 Hemoglobin 8.5 GM/DL Hematocrit 27.9 % Mean Corpuscular Volume 66.5 FL Mean Corpuscular Hemoglobin 20.2 PG Mean Corpuscular Hemoglobin Concent 30.4 % Red Cell Distribution Width 19.9 % Platelet Count 230 TH/MM3 Mean Platelet Volume 9.7 FL Neutrophils (%) (Auto) 50.6 % Lymphocytes (%) (Auto) 41.3 % Monocytes (%) (Auto) 6.3 % Eosinophils (%) (Auto) 1.3 % Basophils (%) (Auto) 0.5 % Neutrophils # (Auto) 4.2 TH/MM3 Lymphocytes # (Auto) 3.4 TH/MM3 Monocytes # (Auto) 0.5 TH/MM3 Eosinophils # (Auto) 0.1 TH/MM3 Basophils # (Auto) 0.0 TH/MM3 CBC Comment DIFF FINAL Differential Comment Prothrombin Time 10.0 SEC Prothromb Time International Ratio 0.9 RATIO Activated Partial Thromboplast Time 23.4 SEC Blood Urea Nitrogen 9 MG/DL Creatinine 0.85 MG/DL Random Glucose 86 MG/DL Total Protein 7.1 GM/DL Albumin 3.2 GM/DL Calcium Level 8.0 MG/DL Alkaline Phosphatase 51 U/L Aspartate Amino Transf (AST/SGOT) 9 U/L Alanine Aminotransferase (ALT/SGPT) 16 U/L Total Bilirubin 0.2 MG/DL Sodium Level 143 MEQ/L Potassium Level 3.5 MEQ/L Chloride Level 110 MEQ/L Carbon Dioxide Level 25.4 MEQ/L Anion Gap 8 MEQ/L Estimat Glomerular Filtration Rate 79 ML/MIN Human Chorionic Gonadotropin, Quant LESS THAN 1 MIU/ML Salicylates Level LESS THAN 1.7 MG/DL Acetaminophen Level 10.5 MCG/ML 8.6 MCG/ML Ethyl Alcohol Level 15 MG/DL Urine Color YELLOW Urine Turbidity CLEAR Urine pH 6.0 Urine Specific [place] 1.017 Urine Protein NEG mg/dL Urine Glucose (UA) NEG mg/dL Urine Ketones NEG mg/dL Urine Occult Blood LARGE Urine Nitrite NEG Urine Bilirubin NEG Urine Urobilinogen LESS THAN 2.0 MG/DL Urine Leukocyte Esterase NEG Urine RBC 97 /hpf Urine WBC 5 /hpf Urine Squamous Epithelial Cells <1 /hpf Urine Mucus FEW /lpf Microscopic Urinalysis Comment CULT NOT INDICATED Urine Opiates Screen NEG Urine Barbiturates Screen NEG Urine Amphetamines Screen NEG Urine Benzodiazepines Screen NEG Urine Cocaine Screen NEG Urine Cannabinoids Screen NEG MDM Medical Record Reviewed: Yes Supervised Visit with DAYO: No Narrative Course Patient is a 31-year-old female that presented to emergency department voluntarily after an accidental overdose. She was seen and evaluated emergency department, medically cleared area she was then moved to the psychiatric unit where she was seen and evaluated by the nurse practitioner once again medically cleared. Patient was deemed stable to discharge home. Diagnosis Primary Impression: Opiate overdose Qualified Codes: T40.601A - Poisoning by unspecified narcotics, accidental ( unintentional), initial encounter Additional Impression: Anxiety Referrals: Primary Care Physician Patient Instructions: Adult Overdose (ED), Anxiety (ED), General Instructions Additional Instruction: Follow-up with your primary doctor Take medications only as they are prescribed Return to emergency department for any new or worsening symptoms Med/Other Pt SpecificInfo: No Change to Meds Disposition: 01 DISCHARGE HOME Condition: Stable Kaila Hurt Dec 13, 2016 14:07
--- NOTE | 2016-12-14 13:43 | EKG ---
Date Performed: 12/12/2016 Time Performed: 23:54:40 PTAGE: 31 years EKG: Sinus rhythm Compared to previous tracing, sinus arrhythmia is no longer present NORMAL ECG PREVIOUS TRACING : 06/08/2016 18.05 DOCTOR: Ok Hernandez Interpretating Date/Time 12/14/2016 13:41:40
== END 2016-12-13 14:43 | disposition home or self-care (01) ==
LOC: NEPC 23:44 → NEPJ 12-13 14:43
DX: T40.601A Poisoning by unspecified narcotics, accidental (unintentional), initial encounter (principal); F41.9 Anxiety disorder, unspecified; R53.83 Other fatigue; E03.9 Hypothyroidism, unspecified; Z79.899 Other long term (current) drug therapy
CPT/HCPCS: 71010; 80053; 80307; 81001; 84702; 85025; 85610; 85730; 93005; 96361; 96365; 96375; 99284; J0132; J2405; J7030; J7060

== ENCOUNTER 2017-05-10 16:47 | Emergency (ER) | payer MEDICAID ==
[~2017-05-10] VITALS: Ht 177.8 cm; Wt 95.0 kg
[2017-05-10 16:50] VITALS: BP 133/79; PULSE 79; RESP 12; TEMP 98.7; O2SAT 100
[2017-05-10 17:58] VITALS: BP 111/55; PULSE 78; RESP 16; O2SAT 99
--- NOTE | 2017-05-10 18:14 | PD ---
HPI Chief Complaint: Chest Pain Time Seen by Provider: 17:59 Travel History International Travel<30 days: No Contact w/Intl Traveler<30days: No Traveled to known affect area: No History of Present Illness HPI 32-year-old female presents emergency department complaining of chest pain, dizziness, headache since about 10 to 11:00 this morning. 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 States her pain is midsternal nonradiating described as "pressure" patient states that the pain lasted for several minutes then went away. States that nothing makes his pain better or worse. Says she had several episodes of this pain today. She has no prior history of this except for couple days ago where she had lower left chest wall pain that was sharp in nature that lasted several minutes and went away. Patient denies shortness of breath. Patient denies medical issues or medication use to include depression, anxiety. States she does have a history of anemia which required blood transfusion after she had multiple heavy periods. She has subsequent ultrasound with biopsy which ruled out the parents uterine or gynecological cancer. Her last menstrual period was 2 weeks ago. Patient does not smoke. Patient does have her "tubes tied". She does not think she is . Patient denies illicit drug use. She denies recent travel, surgeries, fractures, history of blood clots, cancer. PFSH Past Medical History Anemia: Yes Cancer: No Cardiovascular Problems: No Diabetes: No Diminished Hearing: No Endocrine: Yes Genitourinary: No Headaches: Yes Immune Disorder: No Musculoskeletal: No Neurologic: Yes Psychiatric: No Reproductive: No Respiratory: Yes Thyroid Disease: Yes (HYPOTHYROID RESOLVED) Tetanus Vaccination: < 5 Years Influenza Vaccination: No ?: Not LMP: 04/23/17 : 5 Para: 4 Miscarriage: 1 : 0 Tubal Ligation: Yes Past Surgical History Gynecologic Surgery: Yes (tubes tied) Other Surgery: Yes Social History Alcohol Use: Yes (occ) Tobacco Use: No Substance Use: No (Denies ) Allergies-Medications (Allergen,Severity, Reaction): Coded Allergies: No Known Allergies (Unverified Adverse Reaction, Unknown, 05/10/17) Reported Meds & Prescriptions Reported Meds & Active Scripts Active Acyclovir 200 Mg Cap 200 Mg PO 5 TIMES A DAY 10 Days Reported Sprintec 28 (Norgestimate-Ethinyl Estradiol) 0.25-35 mg-Mcg Tab 1 Tab PO DAILY Review of Systems Except as stated in HPI: all other systems reviewed are Neg Physical Exam Narrative GENERAL: Well developed well-nourished in no apparent distress SKIN: Focused skin assessment warm/dry. HEAD: Atraumatic. Normocephalic. EYES: Pupils equal and round. No scleral icterus. No injection or drainage. ENT: No nasal bleeding or discharge. Mucous membranes pink and moist. Poor dentition NECK: Trachea midline. No JVD. No lymphadenopathy CARDIOVASCULAR: Regular rate and rhythm. No murmur appreciated. RESPIRATORY: No accessory muscle use. Clear to auscultation. Breath sounds equal bilaterally. GASTROINTESTINAL: Abdomen soft, non-tender, nondistended. MUSCULOSKELETAL: No obvious deformities. No clubbing. No cyanosis. No edema. Homans sign negative bilaterally NEUROLOGICAL: Awake and alert. No obvious cranial nerve deficits. Motor grossly within normal limits. Normal speech. PSYCHIATRIC: Appropriate mood and affect; insight and judgment normal. Data Data Last Documented VS Vital Signs Date Time Temp Pulse Resp B/P (MAP) Pulse Ox O2 Delivery O2 Flow Rate FiO2 05/10/17 20:52 05/10/17 18:58 77 19 100 Room Air 05/10/17 16:50 98.7 Orders Orders Electrocardiogram (05/10/17 ) Basic Metabolic Panel (Bmp) (05/10/17 18:08) Ckmb (Isoenzyme) Profile (05/10/17 18:08) Complete Blood Count With Diff (05/10/17 18:08) D-Dimer (05/10/17 18:08) Magnesium (Mg) (05/10/17 18:08) Prothrombin Time / Inr (Pt) (05/10/17 18:08) Act Partial Throm Time (Ptt) (05/10/17 18:08) Troponin I (05/10/17 18:08) Chest, Single Ap (05/10/17 18:08) Ecg Monitoring (05/10/17 18:08) Bilateral Bp Monitoring (05/10/17 18:08) Iv Access Insert/Monitor (05/10/17 18:08) Oximetry (05/10/17 18:08) Oxygen Administration (05/10/17 18:08) Sodium Chloride 0.9% Flush (Ns Flush) (05/10/17 18:15) Ed Urine Pregnancytest Poc (05/10/17 18:08) CKMB (05/10/17 18:25) CKMB% (05/10/17 18:25) Sodium Chlor 0.9% 1000 Ml Inj (Ns 1000 M (05/10/17 19:30) Ed Discharge Order (05/10/17 19:46) Labs Laboratory Tests Test 05/10/17 18:25 White Blood Count 7.4 TH/MM3 Red Blood Count 4.52 MIL/MM3 Hemoglobin 9.6 GM/DL Hematocrit 31.1 % Mean Corpuscular Volume 68.7 FL Mean Corpuscular Hemoglobin 21.2 PG Mean Corpuscular Hemoglobin Concent 30.9 % Red Cell Distribution Width 18.5 % Platelet Count 241 TH/MM3 Mean Platelet Volume 9.4 FL Neutrophils (%) (Auto) 64.2 % Lymphocytes (%) (Auto) 28.3 % Monocytes (%) (Auto) 6.3 % Eosinophils (%) (Auto) 0.5 % Basophils (%) (Auto) 0.7 % Neutrophils # (Auto) 4.8 TH/MM3 Lymphocytes # (Auto) 2.1 TH/MM3 Monocytes # (Auto) 0.5 TH/MM3 Eosinophils # (Auto) 0.0 TH/MM3 Basophils # (Auto) 0.1 TH/MM3 CBC Comment DIFF FINAL Differential Comment Prothrombin Time 11.0 SEC Prothromb Time International Ratio 1.1 RATIO Activated Partial Thromboplast Time 22.6 SEC D-Dimer Quantitative (PE/DVT) 0.30 MG/L FEU Blood Urea Nitrogen 27 MG/DL Creatinine 0.82 MG/DL Random Glucose 74 MG/DL Calcium Level 8.7 MG/DL Magnesium Level 2.2 MG/DL Sodium Level 140 MEQ/L Potassium Level 3.7 MEQ/L Chloride Level 105 MEQ/L Carbon Dioxide Level 26.7 MEQ/L Anion Gap 8 MEQ/L Estimat Glomerular Filtration Rate 81 ML/MIN Total Creatine Kinase 148 U/L Creatine Kinase MB 1.3 NG/ML Troponin I LESS THAN 0.02 NG/ML MDM Medical Decision Making Medical Screen Exam Complete: Yes Emergency Medical Condition: Yes Differential Diagnosis Anxiety, atypical chest pain, pulmonary embolism, panic attack Narrative Course 32-year-old female presents emergency department for several episodes of chest pain, dizziness, and headache. Patient admits to a poor diet and nutrition status as she is working 2 jobs currently. Currently, patient states that her headache is "not bad" and refuses pain medication. Patient does not currently have chest pain. After review the EMR, it appears that patient has had multiple suicide attempts by overdose. Patient is also used opiates. During the initial evaluation, patient denied this. Labs and imaging studies ordered. Blood pressure 111/55, heart rate 78. EKG demonstrates sinus rhythm without STEMI changes. Physical exam findings consistent with a 32-year-old female resting comfortably in bed. Cardiac enzymes negative. Anemia chronic and stable, d-dimer 0.30. 1L IVF administered for hydration as patient admits to poor nutrition for 1 week. Laboratory Tests Test 05/10/17 18:25 White Blood Count 7.4 TH/MM3 Red Blood Count 4.52 MIL/MM3 Hemoglobin 9.6 GM/DL Hematocrit 31.1 % Mean Corpuscular Volume 68.7 FL Mean Corpuscular Hemoglobin 21.2 PG Mean Corpuscular Hemoglobin Concent 30.9 % Red Cell Distribution Width 18.5 % Platelet Count 241 TH/MM3 Mean Platelet Volume 9.4 FL Neutrophils (%) (Auto) 64.2 % Lymphocytes (%) (Auto) 28.3 % Monocytes (%) (Auto) 6.3 % Eosinophils (%) (Auto) 0.5 % Basophils (%) (Auto) 0.7 % Neutrophils # (Auto) 4.8 TH/MM3 Lymphocytes # (Auto) 2.1 TH/MM3 Monocytes # (Auto) 0.5 TH/MM3 Eosinophils # (Auto) 0.0 TH/MM3 Basophils # (Auto) 0.1 TH/MM3 CBC Comment DIFF FINAL Differential Comment Prothrombin Time 11.0 SEC Prothromb Time International Ratio 1.1 RATIO Activated Partial Thromboplast Time 22.6 SEC D-Dimer Quantitative (PE/DVT) 0.30 MG/L FEU Blood Urea Nitrogen 27 MG/DL Creatinine 0.82 MG/DL Random Glucose 74 MG/DL Calcium Level 8.7 MG/DL Magnesium Level 2.2 MG/DL Sodium Level 140 MEQ/L Potassium Level 3.7 MEQ/L Chloride Level 105 MEQ/L Carbon Dioxide Level 26.7 MEQ/L Anion Gap 8 MEQ/L Estimat Glomerular Filtration Rate 81 ML/MIN Total Creatine Kinase 148 U/L Creatine Kinase MB 1.3 NG/ML Troponin I LESS THAN 0.02 NG/ML Last Impressions Chest X-Ray 05/10/17 1808 Signed Impressions: Service Date/Time: Wednesday, May 10, 2017 18:25 - CONCLUSION: Normal examination. Too Anthony MD After evaluation the patient and explaining that patient did not have an apparent emergent condition, pt appeared rather agitated. She will be discharged home and follow-up with her primary care physician. [facility] information given. It is likely patient has anxiety as she has multiple jobs and the discomfort occurred while at work. She states understanding and will comply. Diagnosis Primary Impression: Anemia Qualified Codes: D64.9 - Anemia, unspecified Additional Impression: Atypical chest pain Referrals: [facility] Additional Instructions: It is imperative you follow-up with [facility] so that your chronic anemia may be addressed. Avoid excessive stress. Disposition: 01 DISCHARGE HOME Condition: Stable Tasha Velasco May 10, 2017 18:14
[2017-05-10] MEDS ORDERED: SODIUM CHLORIDE 0.9% FLUSH 10 ML FLUSH IVF PRN (18:15)
[2017-05-10 18:31] VITALS: BP 133/79; PULSE 101; RESP 18; O2SAT 100
[2017-05-10 18:44] LABS: AUTOMATED NEUTROPHIL # 4.8 TH/MM3 (1.8-7.7); BASOPHIL # 0.1 TH/MM3 (0-0.2); BASOPHIL % 0.7 % (0.0-2.0); EOSINOPHIL % 0.5 % (0.0-4.0); HEMATOCRIT 31.1 % (35.0-46.0); HEMOGLOBIN 9.6 GM/DL (11.6-15.3); LYMPH % 28.3 % (9.0-44.0); LYMPHOCYTE # 2.1 TH/MM3 (1.0-4.8); MEAN CELL VOLUME 68.7 FL (80.0-100.0); MEAN CORPUSCULAR HEMOGLOBIN 21.2 PG (27.0-34.0); MEAN CORPUSCULAR HGB CONC 30.9 % (32.0-36.0); MEAN PLATELET VOLUME 9.4 FL (7.0-11.0); MONO % 6.3 % (0.0-8.0); MONOCYTE # 0.5 TH/MM3 (0-0.9); NEUT % 64.2 % (16.0-70.0); PLATELET COUNT 241 TH/MM3 (150-450); RED BLOOD COUNT 4.52 MIL/MM3 (4.00-5.30); RED CELL DISTRIBUTION WIDTH 18.5 % (11.6-17.2); WHITE BLOOD COUNT 7.4 TH/MM3 (4.0-11.0)
--- NOTE | 2017-05-10 18:44 | RADRPT ---
EXAM DATE/TIME: 05/10/2017 18:25 [facility] COMPARISON: CHEST SINGLE AP, December 13, 2016, 0:08. INDICATIONS : Chest pain. MEDICAL HISTORY : None. SURGICAL HISTORY : None. ENCOUNTER: Initial ACUITY: 1 day PAIN SCORE: 6/10 LOCATION: Bilateral chest FINDINGS: A single view of the chest demonstrates the lungs to be symmetrically aerated without evidence of mas s, infiltrate or effusion. The cardiomediastinal contours are unremarkable. Osseous structures are intact. CONCLUSION: Normal examination. Too Anthony MD on May 10, 2017 at 18:42 Board Certified Radiologist. This report was verified electronically.
[2017-05-10 18:58] VITALS: BP_SYST 111; BP_SYST 133; BP_DIAS 55; BP_DIAS 79; PULSE 77; RESP 19; O2SAT 100
[2017-05-10 19:04] LABS: BICARBONATE 26.7 MEQ/L (21.0-32.0); BLOOD UREA NITROGEN 27 MG/DL (7-18); CALCIUM 8.7 MG/DL (8.5-10.1); CHLORIDE 105 MEQ/L (98-107); CREATININE 0.82 MG/DL (0.50-1.00); GLOMERULAR FILTRATION RATE 81 ML/MIN (>89); GLUCOSE,RANDOM 74 MG/DL (74-106); MAGNESIUM 2.2 MG/DL (1.5-2.5); SODIUM (NA) 140 MEQ/L (136-145)
[2017-05-10 19:08] LABS: TROPONIN I LESS THAN 0.02 NG/ML (0.02-0.05)
[2017-05-10 19:16] LABS: D-DIMER 0.3 MG/L FEU (0.00-0.50); INTERNATIONAL NORMALIZED RATIO 1.1 RATIO
[2017-05-10] MEDS ORDERED: SODIUM CHLOR 0.9% 1000 ML INJ 1,000 ML IV ONE (19:30)
--- NOTE | 2017-05-10 19:37 | PD ---
Data Data Last Documented VS Vital Signs Date Time Temp Pulse Resp B/P (MAP) Pulse Ox O2 Delivery O2 Flow Rate FiO2 05/10/17 20:52 05/10/17 18:58 77 19 100 Room Air 05/10/17 16:50 98.7 Orders Orders Electrocardiogram (05/10/17 ) Basic Metabolic Panel (Bmp) (05/10/17 18:08) Ckmb (Isoenzyme) Profile (05/10/17 18:08) Complete Blood Count With Diff (05/10/17 18:08) D-Dimer (05/10/17 18:08) Magnesium (Mg) (05/10/17 18:08) Prothrombin Time / Inr (Pt) (05/10/17 18:08) Act Partial Throm Time (Ptt) (05/10/17 18:08) Troponin I (05/10/17 18:08) Chest, Single Ap (05/10/17 18:08) Ecg Monitoring (05/10/17 18:08) Bilateral Bp Monitoring (05/10/17 18:08) Iv Access Insert/Monitor (05/10/17 18:08) Oximetry (05/10/17 18:08) Oxygen Administration (05/10/17 18:08) Sodium Chloride 0.9% Flush (Ns Flush) (05/10/17 18:15) Ed Urine Pregnancytest Poc (05/10/17 18:08) CKMB (05/10/17 18:25) CKMB% (05/10/17 18:25) Sodium Chlor 0.9% 1000 Ml Inj (Ns 1000 M (05/10/17 19:30) Ed Discharge Order (05/10/17 19:46) Labs Laboratory Tests Test 05/10/17 18:25 White Blood Count 7.4 TH/MM3 Red Blood Count 4.52 MIL/MM3 Hemoglobin 9.6 GM/DL Hematocrit 31.1 % Mean Corpuscular Volume 68.7 FL Mean Corpuscular Hemoglobin 21.2 PG Mean Corpuscular Hemoglobin Concent 30.9 % Red Cell Distribution Width 18.5 % Platelet Count 241 TH/MM3 Mean Platelet Volume 9.4 FL Neutrophils (%) (Auto) 64.2 % Lymphocytes (%) (Auto) 28.3 % Monocytes (%) (Auto) 6.3 % Eosinophils (%) (Auto) 0.5 % Basophils (%) (Auto) 0.7 % Neutrophils # (Auto) 4.8 TH/MM3 Lymphocytes # (Auto) 2.1 TH/MM3 Monocytes # (Auto) 0.5 TH/MM3 Eosinophils # (Auto) 0.0 TH/MM3 Basophils # (Auto) 0.1 TH/MM3 CBC Comment DIFF FINAL Differential Comment Prothrombin Time 11.0 SEC Prothromb Time International Ratio 1.1 RATIO Activated Partial Thromboplast Time 22.6 SEC D-Dimer Quantitative (PE/DVT) 0.30 MG/L FEU Blood Urea Nitrogen 27 MG/DL Creatinine 0.82 MG/DL Random Glucose 74 MG/DL Calcium Level 8.7 MG/DL Magnesium Level 2.2 MG/DL Sodium Level 140 MEQ/L Potassium Level 3.7 MEQ/L Chloride Level 105 MEQ/L Carbon Dioxide Level 26.7 MEQ/L Anion Gap 8 MEQ/L Estimat Glomerular Filtration Rate 81 ML/MIN Total Creatine Kinase 148 U/L Creatine Kinase MB 1.3 NG/ML Troponin I LESS THAN 0.02 NG/ML [facility] Medical Record Reviewed: Yes Supervised Visit with DAYO: Yes Interpretation(s) Last Impressions Chest X-Ray 05/10/171807 Signed Impressions: Service Date/Time: Wednesday, May 10, 2017 18:25 - CONCLUSION: Normal examination. Too Anthony MD Narrative Course I, Dr. Rivera, have reviewed the advance practice practitioner's documentation and am in agreement, met with the patient face to face, made the diagnosis, and the medical decision making was done by me. The patient was initially evaluated by Tasha. Please see their complete history and physical. *My assessment and Findings: The patient presents with a history of chest pain, dizziness, headache. During the course of the patient's emergency department visit, the patient's history, examination, and differential diagnosis were reviewed with the patient. 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 The patient had IV access obtained and blood work sent for analysis. The patient was initially provided normal saline 1 L IV fluid bolus.. The patient's laboratory studies were reviewed and remarkable for a white count of 7.4, hemoglobin 9.6, platelets 241 with a normal differential, the patient's anemia has improved compared to previously. CMP is remarkable for a BUN of 27, GFR of 81, CPK 148, troponin I less than 0.02, PT 11, PTT 22.6, d-dimer 0.30 decrease the likelihood of pulmonary embolism in this patient with no other significant risk factors. Radiology studies were reviewed and remarkable for chest x-ray that shows no acute cardiopulmonary disease. The patient is resting comfortably and feels better, is alert and in no distress. The patient's results and examination findings were discussed with the patient. The repeat examination is unremarkable and benign. The history, exam, diagnostic testing, and current condition do not suggest any significant pathology to warrant further testing, continued ED treatment, admission, or surgical evaluation at this point. The vital signs have been stable. The patient does not have uncontrollable pain, intractable vomiting, or other significant symptoms. The patient's condition is stable and appropriate for discharge. The patient will pursue further outpatient evaluation with a primary care physician or other designated or consulting physician as indicated in the discharge instructions. The patient expressed understanding and was agreeable with this plan. Diagnosis Primary Impression: Anemia Qualified Codes: D64.9 - Anemia, unspecified Referrals: [facility] Additional Instruction: It is imperative he follow-up with [facility] so that your chronic anemia may be addressed. Disposition: 01 DISCHARGE HOME Condition: Stable Kandace Rivera MD May 10, 2017 19:37
--- NOTE | 2017-05-11 23:06 | EKG ---
Date Performed: 05/10/2017 Time Performed: 17:00:00 PTAGE: 32 years EKG: Sinus rhythm WITH SINUS ARRHYTHMIA WITH SHORT AL INTERVAL BORDERLINE ECG PREVIOUS TRACING : 12/12/2016 23.54 DOCTOR: Kaci Drummond Interpretating Date/Time 05/11/2017 22:56:50
== END 2017-05-10 21:04 | disposition home or self-care (01) ==
LOC: NEPC 16:47
DX: D64.9 Anemia, unspecified (principal); I49.8 Other specified cardiac arrhythmias
CPT/HCPCS: 71045; 80048; 82550; 82552; 83735; 84484; 84703; 85025; 85379; 85610; 85730; 93005; 96360; 99285; J7030